=== PATIENT | male | born 1960 | race Caucasian/White ===

== ENCOUNTER → 2018-10-24 | Outpatient (CLI) | payer OTHER ==
--- NOTE | 2018-10-24 13:12 | EEG ---
DATE OF SERVICE: 10/24/2018 EEG NUMBER: [id number] OBJECTIVE: This is a 58-year-old male patient with history of epilepsy. EEG was requested to evaluate seizure activity. METHODS: Twenty electrodes were applied according to the international 10-20 electrode placement system. EKG monitoring, hyperventilation, intermittent photic stimulation, monopolar and bipolar montages are routinely utilized. The record was obtained on a digital system with video monitoring. FINDINGS: 1. Background: The patient was recorded in the awake and drowsy states. No actual sleep state was recorded. The overall background amplitude is 10-20 microvolts. A posterior dominant rhythm of 8-9 Hz is observed. 2. Abnormalities: Infrequent bvskvvgem-wxf-lqum mostly in the frontal, central, parietal and yazidism regions bilaterally. Occipital region not affected basically. 3 runs of eldwsulps-pvy-yuox discharges lasting 2-3 seconds each time. No clinical seizure observed. 3. Activation: Hyperventilation was performed with good efforts and normal response. Intermittent photic stimulation was performed with photic driving. One run of the uhgyjfvia-cjp-srwq discharges lasted for 3 seconds post hyperventilation. IMPRESSION: This EEG is an abnormal study for the awake and drowsy states. No actual sleep state was recorded. There are 3 runs of epileptiform discharges, mainly at the frontal, parietal, central and yazidism regions bilaterally. Occipital regions are not obviously affected. This bxfomwlel-kod-zpjw discharges are considered epileptiform discharges. LAWSON WOLFE MD DR: KEYUR/jovani JOB#: [id number] / [id number] MADONNA
== END | disposition home or self-care (01) ==
LOC: RT 08:14
PROVIDERS: ATTEND Psychiatry & Neurology Neurology
DX: R94.01 Abnormal electroencephalogram [EEG] (principal); G40.909 Epilepsy, unspecified, not intractable, without status epilepticus
CPT/HCPCS: 95816

== ENCOUNTER → 2019-08-07 | Outpatient (CLI) | payer OTHER ==
[2019-08-07 09:48] LABS: BASO % 1 % (0-3); EOS # 0.1 x10^3/uL (0.0-0.7); EOS % 2 % (0-3); HEMATOCRIT 44.4 % (39.0-53.0); HEMOGLOBIN 15.3 g/dL (13.0-17.5); LYMPH # 1.6 x10^3/uL (1.0-4.8); LYMPH % 26 % (24-48); MEAN CORPUSCULAR HEMOGLOBIN 33 pg (25-35); MEAN CORPUSCULAR HGB CONC 35 g/dL (31-37); MEAN CORPUSCULAR VOLUME 95 fL (79-100); MONO # 0.4 x10^3/uL (0.0-1.1); MONO % 7 % (0-9); NEUT # 3.9 x10^3/uL (1.8-7.7); NEUT % 65 % (31-73); PLATELET COUNT 197 x10^3/uL (140-400); RED CELL DISTRIBUTION WIDTH 12.2 % (11.5-14.5); WHITE BLOOD COUNT 6.1 x10^3/uL (4.0-11.0)
[2019-08-07 10:23] LABS: ALBUMIN 4.2 g/dL (3.4-5.0); ALBUMIN/GLOBULIN RATIO 1.4 (1.0-1.7); CALCIUM 8.8 mg/dL (8.5-10.1); CREATININE 0.9 mg/dL (0.7-1.3); GFR 86.7; POTASSIUM 3.8 mmol/L (3.5-5.1); TOTAL BILIRUBIN 0.8 mg/dL (0.2-1.0); TOTAL PROTEIN 7.2 g/dL (6.4-8.2)
[2019-08-07 10:25] LABS: CHOLESTEROL/HDL RATIO 4.7
== END | disposition home or self-care (01) ==
LOC: LAB 09:10
PROVIDERS: ATTEND Psychiatry & Neurology Neurology
DX: G40.909 Epilepsy, unspecified, not intractable, without status epilepticus (principal)
CPT/HCPCS: 36415; 80053; 80061; 85025

== ENCOUNTER → 2019-08-21 | Outpatient (CLI) | payer OTHER ==
--- NOTE | 2019-08-22 14:34 | EEG ---
DATE OF SERVICE: 08/21/2019 EEG NUMBER: [id number]. OBJECTIVE: This is a 59-year-old male patient with history of seizure. EEG was requested to evaluate seizure activity. METHODS: Twenty electrodes were applied according to the international 10-20 electrode placement system. EKG monitoring, hyperventilation, intermittent photic stimulation, monopolar and bipolar montages are routinely utilized. The record was obtained on a digital system with video monitoring. FINDINGS: 1. Background: The patient was recorded in the awake, drowsy, and sleep states. The overall background amplitude is 10-20 microvolts. A posterior dominant rhythm of 8-9 Hz is observed. 2. Abnormalities: There are some kckrmggmj-fqc-ebhv discharges mostly in frontal and parietal region lasting for 1-3 seconds each time. No diffuse slowing is seen. 3. Activation: Hyperventilation was performed with good efforts and normal response. Intermittent photic stimulation was performed with photic driving. IMPRESSION: This EEG is an abnormal study for the awake, drowsy, and sleep states. There are txvgtezip-pyt-mpis discharges mostly in the frontal and parietal regions lasting from 1-3 seconds each time, but compared with previous study, this EEG is improved. This pattern of EEG is suggestive of intermittent epileptiform discharges. LAWSON WOLFE MD DR: KEYUR/jovani JOB#: [id number] / [id number] MADONNA
== END | disposition home or self-care (01) ==
LOC: RT 06:55
PROVIDERS: ATTEND Psychiatry & Neurology Neurology
DX: G40.909 Epilepsy, unspecified, not intractable, without status epilepticus (principal); Z86.69 Personal history of other diseases of the nervous system and sense organs
CPT/HCPCS: 95816

== ENCOUNTER → 2020-01-05 | Outpatient (CLI) | payer OTHER ==
--- NOTE | 2020-01-10 09:03 | EEG ---
DATE OF SERVICE: 01/05/2020 EEG NUMBER: [id number]. OBJECTIVE: The patient is a 59-year-old male with epilepsy. DESCRIPTION: This is a digital study. Electrodes are placed according to the international 10-20 system. Bipolar and referential montages are available. Activation procedures typically include hyperventilation and intermittent photic stimulation. INTERPRETATION: The waking background consists of 9-10 Hz, 50-100 microvolt activity, symmetrically distributed over parietooccipital regions and reactive to eye opening. Hyperventilation and intermittent photic stimulation are noncontributory. Rare generalized sharp slowing episodes are observed, for instance at 10:59:03. Stage 1 sleep is achieved with normal electroencephalogram patterns. Hyperventilation and intermittent photic stimulation are noncontributory. 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 Thank you for letting us help with the patient's care. MARTHA NICHOLSON MD DR: RAMONA/jovani JOB#: [id number] / [id number]
== END | disposition home or self-care (01) ==
LOC: RT 09:11
PROVIDERS: ATTEND Psychiatry & Neurology Neurology
DX: G40.909 Epilepsy, unspecified, not intractable, without status epilepticus (principal)
CPT/HCPCS: 95816

== ENCOUNTER 2020-04-15 13:17 | Inpatient (IN) | payer OTHER ==
[~2020-04-15] VITALS: Ht 185.4 cm; Wt 101.2 kg
[2020-04-15] MEDS ORDERED: IV NORMAL SALINE 1000ML BAG 1,000 ML IV ONE ×2 (13:30→15:15)
[2020-04-15 13:55] LABS: BILIRUBIN,URINE NEGATIVE (NEG); CLARITY,URINE CLEAR; COLOR,URINE YELLOW; NITRITE,URINE NEGATIVE (NEG); PROTEIN,URINE 30 mg/dL (NEG-TRACE); UROBILINOGEN,URINE 0.2 mg/dL (0.2 mg/dL)
[2020-04-15 13:57] LABS: BASO % 0 % (0-3); EOS % 0 % (0-3); HEMATOCRIT 45.9 % (39.0-53.0); HEMOGLOBIN 15.7 g/dL (13.0-17.5); LYMPH # 0.3 x10^3/uL (1.0-4.8); LYMPH % 2 % (24-48); MEAN CORPUSCULAR HEMOGLOBIN 33 pg (25-35); MEAN CORPUSCULAR HGB CONC 34 g/dL (31-37); MEAN CORPUSCULAR VOLUME 95 fL (79-100); MONO # 0.8 x10^3/uL (0.0-1.1); MONO % 4 % (0-9); NEUT # 18.1 x10^3/uL (1.8-7.7); NEUT % 94 % (31-73); PLATELET COUNT 232 x10^3/uL (140-400); RED BLOOD COUNT 4.84 x10^6/uL (4.30-5.70); RED CELL DISTRIBUTION WIDTH 12.3 % (11.5-14.5); WHITE BLOOD COUNT 19.2 x10^3/uL (4.0-11.0)
[2020-04-15 14:01] LABS: BARBITURATES NEG (NEG); BENZODIAZEPINES NEG (NEG); CANNABINOIDS NEG (NEG); COCAINE NEG (NEG); METHADONE NEG (NEG); OPIATES NEG (NEG); PHENCYCLIDINE NEG (NEG)
[2020-04-15 14:05] LABS: CALCIUM 9.2 mg/dL (8.5-10.1); GFR 76.7; POTASSIUM 3.9 mmol/L (3.5-5.1)
[2020-04-15 14:11] LABS: AMPHETAMINE/METHAMPHETAMINE NEG (NEG)
[2020-04-15 14:11] LABS: ALBUMIN 4.4 g/dL (3.4-5.0); ALBUMIN/GLOBULIN RATIO 1.4 (1.0-1.7); PROTHROMBIN TIME PATIENT 12.6 SEC (11.7-14.0); TOTAL BILIRUBIN 0.5 mg/dL (0.2-1.0); TOTAL PROTEIN 7.5 g/dL (6.4-8.2)
[2020-04-15 14:15] LABS: AMORPHOUS SEDIMENT,UR PRESENT /HPF; BACTERIA,URINE 0 /HPF (0-FEW); RBC,URINE 0 /HPF (0-2); WBC,URINE RARE /HPF (0-4)
[2020-04-15] MEDS ORDERED: METF10007 PO (14:30)
[2020-04-15] MEDS ORDERED: PHEN100C PO (14:30)
[2020-04-15] MEDS ORDERED: MELA3TAB4 PO (14:30)
[2020-04-15] MEDS ORDERED: LISI1TAB23 PO (14:30)
[2020-04-15] MEDS ORDERED: CITA40TA5 PO (14:30)
--- NOTE | 2020-04-15 14:31 | RAD ---
EXAM: CT Head without IV contrast INDICATION: Reason: head and neck Trauma / Spl. Instructions: / History: TECHNIQUE: Multi-detector row CT images were obtained of the head without the use of IV contrast. All CT scans performed at this facility utilize dose optimization techniques as appropriate to the exam, including the following: Automated exposure control and adjustment of the mA and/or KV according to patient size (this includes techniques or standardized protocols for targeted exams where dose is indication/reason for exam). COMPARISON: None FINDINGS: BRAIN PARENCHYMA: No evidence of acute intraparenchymal hemorrhage or infarct. No abnormal parenchymal density or mass. VENTRICLES & EXTRA-AXIAL SPACES: Ventricles are within normal limits. Basilar cisterns are patent. No pathologic extra-axial fluid collection or mass. ORBITS: Orbital contents are unremarkable. SINUSES: Visualized paranasal sinuses and mastoid air cells are clear. OSSEOUS & SOFT TISSUES: Calvarium and skull base are intact. IMPRESSION: No acute intracranial pathology. EXAM: CT Cervical Spine without IV contrast INDICATION: Reason: head and neck Trauma / Spl. Instructions: / History: TECHNIQUE: Multi-detector row CT images were obtained through the cervical spine without the use of IV contrast. Post-processing sagittal and coronal reconstructed images were obtained for interpretation. All CT scans performed at this facility utilize dose optimization techniques as appropriate to the exam, including the following: Automated exposure control and adjustment of the mA and/or KV according to patient size (this includes techniques or standardized protocols for targeted exams where dose is indication/reason for exam). COMPARISON: None FINDINGS: CRANIOCERVICAL JUNCTION: Unremarkable. ALIGNMENT: Alignment is within normal limits. OSSEOUS: No evidence of fracture or bone destruction. DISC SPACES: Minimal disc degenerative change with uncovertebral hypertrophy best appreciated at C3-C4. FACET JOINTS: Minimal facet degenerative changes, most notable at C7-T1, right greater than left. SPINAL CANAL: Unremarkable. NEUROFORAMINA: Unremarkable. SOFT TISSUES: Unremarkable. IMPRESSION: No acute traumatic findings in the cervical spine. Electronically signed by: Lul Cervantes MD (04/15/2020 2:28 PM) [facility] – [place]
--- NOTE | 2020-04-15 14:37 | PHYS DOC ---
Past Medical History Past Medical History: Depression, Diabetes-Type II, High Cholesterol, Hypertension, Seizure Additional Past Medical Histor: EPILEPSY,CHRONIC NECK AND BACK PAIN Past Surgical History: Other Additional Past Surgical Histo: EYE SURGERY Smoking Status: Unknown if ever smoked Alcohol Use: None General Adult EDM: Chief Complaint: TRAUMA ALERT HPI: HPI: Patient is a 59-year-old male with a history of seizure disorder who was found at home with blood all over his face. Patient did not show up for work today and a wellness check was called into the local Police Department by the patient's boss since he did not come home from work when the police showed up they found the patient with blood on his face and essentially unresponsive he had been incontinent of urine. Patient is unable to provide any history secondary to altered mental status [] Review of Systems: Review of Systems: Review of systems is unobtainable secondary to altered mental status Heart Score: Risk Factors: Risk Factors: DM, Current or recent (<one month) smoker, HTN, HLP, family history of CAD, obesity. Risk Scores: Score 0 - 3: 2.5% MACE over next 6 weeks - Discharge Home Score 4 - 6: 20.3% MACE over next 6 weeks - Admit for Clinical Observation Score 7 - 10: 72.7% MACE over next 6 weeks - Early Invasive Strategies Current Medications: Current Medications Medications (Trade) Dose Ordered Sig/Danni Start Time Stop Time Status Last Admin Dose Admin Sodium Chloride 1,000 ml @ 1,000 mls/hr 1X ONCE 04/15/20 13:30 04/15/20 14:29 DC 04/15/20 14:23 1,000 MLS/HR Allergies: Allergies: Allergies Coded Allergies Type Severity Reaction Last Updated Verified No Known Drug Allergies 04/15/20 No Physical Exam: PE: Constitutional: Well developed, well nourished, no acute distress, non-toxic appearance. [] HENT: He has a oral injury nothing obvious but there is blood coming from his mouth] Eyes: Irregular left pupil with foreign body over the middle of the left pupil the right pupil is 2 mm and responsive to light [] Neck: Normal range of motion, no tenderness, supple, no stridor. [] Cardiovascular: Tachycardic no obvious murmur [] Lungs & Thorax: Bilateral breath sounds clear to auscultation [] Abdomen: Bowel sounds normal, soft, no tenderness, no masses, no pulsatile masses. [] Skin: Warm, dry, no erythema, no rash. [] Back: No tenderness, no CVA tenderness. [] Extremities: No tenderness, no cyanosis, no clubbing, ROM intact, no edema. [] Neurologic: Arouses to verbal stimuli will follow with his eyes, moves all 4 extremities. [] Psychologic: Unable to assess. [] Current Patient Data: Labs: Laboratory Tests Test 04/15/20 13:24 04/15/20 13:33 04/15/20 13:40 Urine Opiates Screen Neg (NEG) Urine Methadone Screen Neg (NEG) Urine Barbiturates Neg (NEG) Urine Phencyclidine Screen Neg (NEG) Urine Amphetamine/Methamphetamine Neg (NEG) Urine Benzodiazepines Screen Neg (NEG) Urine Cocaine Screen Neg (NEG) Urine Cannabinoids Screen Neg (NEG) Urine Ethyl Alcohol Neg (NEG) White Blood Count 19.2 x10^3/uL (4.0-11.0) H Red Blood Count 4.84 x10^6/uL (4.30-5.70) Hemoglobin 15.7 g/dL (13.0-17.5) Hematocrit 45.9 % (39.0-53.0) Mean Corpuscular Volume 95 fL (79-100) Mean Corpuscular Hemoglobin 33 pg (25-35) Mean Corpuscular Hemoglobin Concent 34 g/dL (31-37) Red Cell Distribution Width 12.3 % (11.5-14.5) Platelet Count 232 x10^3/uL (140-400) Neutrophils (%) (Auto) 94 % (31-73) H Lymphocytes (%) (Auto) 2 % (24-48) L Monocytes (%) (Auto) 4 % (0-9) Eosinophils (%) (Auto) 0 % (0-3) Basophils (%) (Auto) 0 % (0-3) Neutrophils # (Auto) 18.1 x10^3/uL (1.8-7.7) H Lymphocytes # (Auto) 0.3 x10^3/uL (1.0-4.8) L Monocytes # (Auto) 0.8 x10^3/uL (0.0-1.1) Eosinophils # (Auto) 0.0 x10^3/uL (0.0-0.7) Basophils # (Auto) 0.0 x10^3/uL (0.0-0.2) Platelet Estimate Pending Prothrombin Time 12.6 SEC (11.7-14.0) Prothrombin Time INR 1.0 (0.8-1.1) Sodium Level 142 mmol/L (136-145) Potassium Level 3.9 mmol/L (3.5-5.1) Chloride Level 103 mmol/L (98-107) Carbon Dioxide Level 21 mmol/L (21-32) Anion Gap 18 (6-14) H Blood Urea Nitrogen 13 mg/dL (8-26) Creatinine 1.0 mg/dL (0.7-1.3) Estimated GFR (Cockcroft-Gault) 76.7 BUN/Creatinine Ratio 13 (6-20) Glucose Level 210 mg/dL (70-99) H Lactic Acid Level 2.8 mmol/L (0.4-2.0) H Calcium Level 9.2 mg/dL (8.5-10.1) Total Bilirubin 0.5 mg/dL (0.2-1.0) Aspartate Amino Transferase (AST) 23 U/L (15-37) Alanine Aminotransferase (ALT) 31 U/L (16-63) Alkaline Phosphatase 87 U/L (46-116) Creatine Kinase 673 U/L (39-308) H Troponin I Quantitative < 0.017 ng/mL (0.000-0.055) Total Protein 7.5 g/dL (6.4-8.2) Albumin 4.4 g/dL (3.4-5.0) Albumin/Globulin Ratio 1.4 (1.0-1.7) Ethyl Alcohol Level < 10 mg/dL (0-10) Urine Collection Type Unknown Urine Color Yellow Urine Clarity Clear Urine pH 5.0 (<5.0-8.0) Urine Specific [place] >=1.030 (1.000-1.030) Urine Protein 30 mg/dL (NEG-TRACE) Urine Glucose (UA) >=1000 mg/dL (NEG) Urine Ketones (Stick) >=80 mg/dL (NEG) Urine Blood Moderate (NEG) Urine Nitrite Negative (NEG) Urine Bilirubin Negative (NEG) Urine Urobilinogen Dipstick 0.2 mg/dL (0.2 mg/dL) Urine Leukocyte Esterase Negative (NEG) Urine RBC 0 /HPF (0-2) Urine WBC Rare /HPF (0-4) Urine Squamous Epithelial Cells None /LPF Urine Amorphous Sediment Present /HPF Urine Bacteria 0 /HPF (0-FEW) Urine Mucus Mod /LPF Laboratory Tests 04/15/20 13:33 Laboratory Tests 04/15/20 13:33 Vital Signs: Vital Signs Date Time Temp Pulse Resp B/P (MAP) Pulse Ox O2 Delivery O2 Flow Rate FiO2 04/15/20 13:20 98.2 106 16 155/104 (121) 98 Room Air 98.2 EKG: EKG: EKG: Sinus tachycardia rate of [address]-T changes [] Radiology/Procedures: Radiology/Procedures: []PROCEDURE: CT HEAD AND CERVICAL SPINE WO EXAM: CT Head without IV contrast INDICATION: Reason: head and neck Trauma / Spl. Instructions: / History: TECHNIQUE: Multi-detector row CT images were obtained of the head without the use of IV contrast. All CT scans performed at this facility utilize dose optimization techniques as appropriate to the exam, including the following: Automated exposure control and adjustment of the mA and/or KV according to patient size (this includes techniques or standardized protocols for targeted exams where dose is indication/reason for exam). COMPARISON: None FINDINGS: BRAIN PARENCHYMA: No evidence of acute intraparenchymal hemorrhage or infarct. No abnormal parenchymal density or mass. VENTRICLES & EXTRA-AXIAL SPACES: Ventricles are within normal limits. Basilar cisterns are patent. No pathologic extra-axial fluid collection or mass. ORBITS: Orbital contents are unremarkable. SINUSES: Visualized paranasal sinuses and mastoid air cells are clear. OSSEOUS & SOFT TISSUES: Calvarium and skull base are intact. IMPRESSION: No acute intracranial pathology. EXAM: CT Cervical Spine without IV contrast INDICATION: Reason: head and neck Trauma / Spl. Instructions: / History: TECHNIQUE: Multi-detector row CT images were obtained through the cervical spine without the use of IV contrast. Post-processing sagittal and coronal reconstructed images were obtained for interpretation. All CT scans performed at this facility utilize dose optimization techniques as appropriate to the exam, including the following: Automated exposure control and adjustment of the mA and/or KV according to patient size (this includes techniques or standardized protocols for targeted exams where dose is indication/reason for exam). COMPARISON: None FINDINGS: CRANIOCERVICAL JUNCTION: Unremarkable. ALIGNMENT: Alignment is within normal limits. OSSEOUS: No evidence of fracture or bone destruction. DISC SPACES: Minimal disc degenerative change with uncovertebral hypertrophy best appreciated at C3-C4. FACET JOINTS: Minimal facet degenerative changes, most notable at C7-T1, right greater than left. SPINAL CANAL: Unremarkable. NEUROFORAMINA: Unremarkable. SOFT TISSUES: Unremarkable. IMPRESSION: No acute traumatic findings in the cervical spine. Impression: PROCEDURE: CHEST AP ONLY EXAM: Chest, single view. HISTORY: Leukocytosis. COMPARISON: None. FINDINGS: A frontal view of the chest obtained. There is mild increased central predominant interstitial opacity. There is no consolidation, pleural effusion or pneumothorax. The heart is normal in size. IMPRESSION: Mild central predominant increased interstitial opacity due to relative decreased lung volumes or interstitial infiltrate. No consolidation is seen. Course & Med Decision Making: Course & Med Decision Making Pertinent Labs and Imaging studies reviewed. (See chart for details) [ED course: Evaluation reveals a 59-year-old male who is likely had a seizure at home. He has no evidence of infection that I can find however he does have an elevated white count and a lactic acid of 2.8 I think the white count is elevated secondary to his seizure as well as the lactic acid. Patient was given a couple liters of IV fluids here he became more responsive. On recheck I did check his neck again there were no meningeal signs. CT of his head was negative. I spoke with the hospitalist who agreed with my assessment and will place the patient in the hospital with neurology consult.] Betsey Disclaimer: Betsey Disclaimer: This electronic medical record was generated, in whole or in part, using a voice recognition dictation system. Departure Departure Impression: Primary Impression: Altered mental status Qualified Codes: R41.82 - Altered mental status, unspecified Additional Impression: Seizure Disposition: ADMITTED INPATIENT Admitting Physician: PANKAJ Condition: STABLE Referrals: ROMMEL MORALEZ MD (PCP) Justicifation of Admission Dx: Justifications for Admission: Justification of Admission Dx: Yes Comments: Altered mental status SHASHI DHILLON DO Apr 15, 2020 14:37
[2020-04-15 15:05] LABS: % BANDS 6 % (0-9); % MONOS 3 % (0-10); % SEGS 91 % (35-66); PLT ESTIMATE ADEQUATE (ADEQUATE)
[2020-04-15 15:06] LABS: TOXIC GRANULATION SLIGHT; TOXIC VACUOLATION SLIGHT
--- NOTE | 2020-04-15 15:26 | PDOC1 ---
History and Physical Date of Admission Date of Admission DATE: 04/15/20 TIME: 15:24 Identification/Chief Complaint Chief Complaint Found down Source Source: Chart review History of Present Illness History of Present Illness Mr Cochran is a 59yo M w/ PMHx depression, seizure disorder, DM2, HLD, HTN who comes to ED via EMS from home. He was found facedown in a pool of blood by EMS after police were contacted for a wellness check by his employer after he did not show up to work. GCS 9. Last seen 04/13/[address] head, neck and face negative. Lactate 2.8, CK 673, INR 1, WBC 19.2, Hb 15.7, platelets 232, NA 142, K3.9, BUN 13, CR 1, glucose 210. Troponin negative, urine drug screen negative, alcohol negative. Urine positive for glucosuria, ketones, blood. He does open his eyes to sternal rub and moans. Past Medical History Cardiovascular: HTN CENTRAL NERVOUS SYSTEM: Seizure Endocrine: Diabetes Past Surgical History Past Surgical History: No pertinent history Family History Family History: Family History Unknown Social History Smoke: No ALCOHOL: none Drugs: None Current Medications Current Medications Current Medications Sodium Chloride 1,000 ml @ 1,000 mls/hr 1X ONCE IV Last administered on 04/15/20at 14:23; Start 04/15/20 at 13:30; Stop 04/15/20 at 14:29; Status DC Sodium Chloride 1,000 ml @ 0 mls/hr 1X ONCE IV ; Start 04/15/20 at 15:15; Stop 04/15/20 at 15:17; Status DC Active Scripts Active Reported Dilantin (Phenytoin Sodium Extended) 100 Mg Capsule 300 Mg PO QHS Metformin Hcl 1,000 Mg Tablet 1,000 Mg PO BIDWMEALS Citalopram Hbr (Citalopram Hydrobromide) 40 Mg Tablet 1 Tab PO DAILY Lisinopril-Hctz 10-12.5 Mg Tab (Lisinopril/Hydrochlorothiazide) 1 Each Tablet 1 Tab PO DAILY Melatonin 3 Mg Tablet 1 Tab PO QHS Allergies Allergies: Coded Allergies: No Known Drug Allergies (Unverified , 04/15/20) ROS Review of System Unable to obtain due to altered mental status Physical Exam General: Cooperative, No acute distress, Other (Confused) HEENT: Atraumatic, PERRLA, EOMI, Mucous membr. moist/pink Lungs: Clear to auscultation, Normal air movement Heart: S1S2, RRR, no thrills, no rubs, no gallops, no murmurs Abdomen: Normal bowel sounds, Soft, No tenderness, No hepatosplenomegaly, No masses Rectal Exam: not examined Extremities: No clubbing, No cyanosis, No edema, Normal pulses, No tenderness/swelling Skin: No rashes, No breakdown, No significant lesion Neuro: Normal tone, Sensation intact, Cranial nerves 3-12 NL, Reflexes 2+, Other (Moving all 4 limbs) Psych/Mental Status: Other Vitals Vitals Vital Signs Date Time Temp Pulse Resp B/P (MAP) Pulse Ox O2 Delivery O2 Flow Rate FiO2 04/15/20 14:22 104 161/113 (129) 99 Room Air 04/15/20 13:20 98.2 16 98.2 Labs Labs Laboratory Tests Test 04/15/20 13:24 04/15/20 13:33 04/15/20 13:40 Urine Opiates Screen Neg (NEG) Urine Methadone Screen Neg (NEG) Urine Barbiturates Neg (NEG) Urine Phencyclidine Screen Neg (NEG) Urine Amphetamine/Methamphetamine Neg (NEG) Urine Benzodiazepines Screen Neg (NEG) Urine Cocaine Screen Neg (NEG) Urine Cannabinoids Screen Neg (NEG) Urine Ethyl Alcohol Neg (NEG) White Blood Count 19.2 x10^3/uL (4.0-11.0) Red Blood Count 4.84 x10^6/uL (4.30-5.70) Hemoglobin 15.7 g/dL (13.0-17.5) Hematocrit 45.9 % (39.0-53.0) Mean Corpuscular Volume 95 fL (79-100) Mean Corpuscular Hemoglobin 33 pg (25-35) Mean Corpuscular Hemoglobin Concent 34 g/dL (31-37) Red Cell Distribution Width 12.3 % (11.5-14.5) Platelet Count 232 x10^3/uL (140-400) Neutrophils (%) (Auto) 94 % (31-73) Lymphocytes (%) (Auto) 2 % (24-48) Monocytes (%) (Auto) 4 % (0-9) Eosinophils (%) (Auto) 0 % (0-3) Basophils (%) (Auto) 0 % (0-3) Neutrophils # (Auto) 18.1 x10^3/uL (1.8-7.7) Lymphocytes # (Auto) 0.3 x10^3/uL (1.0-4.8) Monocytes # (Auto) 0.8 x10^3/uL (0.0-1.1) Eosinophils # (Auto) 0.0 x10^3/uL (0.0-0.7) Basophils # (Auto) 0.0 x10^3/uL (0.0-0.2) Segmented Neutrophils % 91 % (35-66) Band Neutrophils % 6 % (0-9) Monocytes % 3 % (0-10) Toxic Granulation Slight Toxic Vacuolation Slight Platelet Estimate Adequate (ADEQUATE) Prothrombin Time 12.6 SEC (11.7-14.0) Prothromb Time International Ratio 1.0 (0.8-1.1) Sodium Level 142 mmol/L (136-145) Potassium Level 3.9 mmol/L (3.5-5.1) Chloride Level 103 mmol/L (98-107) Carbon Dioxide Level 21 mmol/L (21-32) Anion Gap 18 (6-14) Blood Urea Nitrogen 13 mg/dL (8-26) Creatinine 1.0 mg/dL (0.7-1.3) Estimated GFR (Cockcroft-Gault) 76.7 BUN/Creatinine Ratio 13 (6-20) Glucose Level 210 mg/dL (70-99) Lactic Acid Level 2.8 mmol/L (0.4-2.0) Calcium Level 9.2 mg/dL (8.5-10.1) Total Bilirubin 0.5 mg/dL (0.2-1.0) Aspartate Amino Transf (AST/SGOT) 23 U/L (15-37) Alanine Aminotransferase (ALT/SGPT) 31 U/L (16-63) Alkaline Phosphatase 87 U/L (46-116) Creatine Kinase 673 U/L (39-308) Troponin I Quantitative < 0.017 ng/mL (0.000-0.055) Total Protein 7.5 g/dL (6.4-8.2) Albumin 4.4 g/dL (3.4-5.0) Albumin/Globulin Ratio 1.4 (1.0-1.7) Ethyl Alcohol Level < 10 mg/dL (0-10) Urine Collection Type Unknown Urine Color Yellow Urine Clarity Clear Urine pH 5.0 (<5.0-8.0) Urine Specific [place] >=1.030 (1.000-1.030) Urine Protein 30 mg/dL (NEG-TRACE) Urine Glucose (UA) >=1000 mg/dL (NEG) Urine Ketones (Stick) >=80 mg/dL (NEG) Urine Blood Moderate (NEG) Urine Nitrite Negative (NEG) Urine Bilirubin Negative (NEG) Urine Urobilinogen Dipstick 0.2 mg/dL (0.2 mg/dL) Urine Leukocyte Esterase Negative (NEG) Urine RBC 0 /HPF (0-2) Urine WBC Rare /HPF (0-4) Urine Squamous Epithelial Cells None /LPF Urine Amorphous Sediment Present /HPF Urine Bacteria 0 /HPF (0-FEW) Urine Mucus Mod /LPF Laboratory Tests Test 04/15/20 13:24 04/15/20 13:33 04/15/20 13:40 Urine Opiates Screen Neg (NEG) Urine Methadone Screen Neg (NEG) Urine Barbiturates Neg (NEG) Urine Phencyclidine Screen Neg (NEG) Urine Amphetamine/Methamphetamine Neg (NEG) Urine Benzodiazepines Screen Neg (NEG) Urine Cocaine Screen Neg (NEG) Urine Cannabinoids Screen Neg (NEG) Urine Ethyl Alcohol Neg (NEG) White Blood Count 19.2 x10^3/uL (4.0-11.0) Red Blood Count 4.84 x10^6/uL (4.30-5.70) Hemoglobin 15.7 g/dL (13.0-17.5) Hematocrit 45.9 % (39.0-53.0) Mean Corpuscular Volume 95 fL (79-100) Mean Corpuscular Hemoglobin 33 pg (25-35) Mean Corpuscular Hemoglobin Concent 34 g/dL (31-37) Red Cell Distribution Width 12.3 % (11.5-14.5) Platelet Count 232 x10^3/uL (140-400) Neutrophils (%) (Auto) 94 % (31-73) Lymphocytes (%) (Auto) 2 % (24-48) Monocytes (%) (Auto) 4 % (0-9) Eosinophils (%) (Auto) 0 % (0-3) Basophils (%) (Auto) 0 % (0-3) Neutrophils # (Auto) 18.1 x10^3/uL (1.8-7.7) Lymphocytes # (Auto) 0.3 x10^3/uL (1.0-4.8) Monocytes # (Auto) 0.8 x10^3/uL (0.0-1.1) Eosinophils # (Auto) 0.0 x10^3/uL (0.0-0.7) Basophils # (Auto) 0.0 x10^3/uL (0.0-0.2) Segmented Neutrophils % 91 % (35-66) Band Neutrophils % 6 % (0-9) Monocytes % 3 % (0-10) Toxic Granulation Slight Toxic Vacuolation Slight Platelet Estimate Adequate (ADEQUATE) Prothrombin Time 12.6 SEC (11.7-14.0) Prothromb Time International Ratio 1.0 (0.8-1.1) Sodium Level 142 mmol/L (136-145) Potassium Level 3.9 mmol/L (3.5-5.1) Chloride Level 103 mmol/L (98-107) Carbon Dioxide Level 21 mmol/L (21-32) Anion Gap 18 (6-14) Blood Urea Nitrogen 13 mg/dL (8-26) Creatinine 1.0 mg/dL (0.7-1.3) Estimated GFR (Cockcroft-Gault) 76.7 BUN/Creatinine Ratio 13 (6-20) Glucose Level 210 mg/dL (70-99) Lactic Acid Level 2.8 mmol/L (0.4-2.0) Calcium Level 9.2 mg/dL (8.5-10.1) Total Bilirubin 0.5 mg/dL (0.2-1.0) Aspartate Amino Transf (AST/SGOT) 23 U/L (15-37) Alanine Aminotransferase (ALT/SGPT) 31 U/L (16-63) Alkaline Phosphatase 87 U/L (46-116) Creatine Kinase 673 U/L (39-308) Troponin I Quantitative < 0.017 ng/mL (0.000-0.055) Total Protein 7.5 g/dL (6.4-8.2) Albumin 4.4 g/dL (3.4-5.0) Albumin/Globulin Ratio 1.4 (1.0-1.7) Ethyl Alcohol Level < 10 mg/dL (0-10) Urine Collection Type Unknown Urine Color Yellow Urine Clarity Clear Urine pH 5.0 (<5.0-8.0) Urine Specific [place] >=1.030 (1.000-1.030) Urine Protein 30 mg/dL (NEG-TRACE) Urine Glucose (UA) >=1000 mg/dL (NEG) Urine Ketones (Stick) >=80 mg/dL (NEG) Urine Blood Moderate (NEG) Urine Nitrite Negative (NEG) Urine Bilirubin Negative (NEG) Urine Urobilinogen Dipstick 0.2 mg/dL (0.2 mg/dL) Urine Leukocyte Esterase Negative (NEG) Urine RBC 0 /HPF (0-2) Urine WBC Rare /HPF (0-4) Urine Squamous Epithelial Cells None /LPF Urine Amorphous Sediment Present /HPF Urine Bacteria 0 /HPF (0-FEW) Urine Mucus Mod /LPF Images Images BRAIN PARENCHYMA: No evidence of acute intraparenchymal hemorrhage or infarct. No abnormal parenchymal density or mass. VENTRICLES & EXTRA-AXIAL SPACES: Ventricles are within normal limits. Basilar cisterns are patent. No pathologic extra-axial fluid collection or mass. ORBITS: Orbital contents are unremarkable. SINUSES: Visualized paranasal sinuses and mastoid air cells are clear. OSSEOUS & SOFT TISSUES: Calvarium and skull base are intact. IMPRESSION: No acute intracranial pathology. EXAM: CT Cervical Spine without IV contrast INDICATION: Reason: head and neck Trauma / Spl. Instructions: / History: TECHNIQUE: Multi-detector row CT images were obtained through the cervical spine without the use of IV contrast. Post-processing sagittal and coronal reconstructed images were obtained for interpretation. All CT scans performed at this facility utilize dose optimization techniques as appropriate to the exam, including the following: Automated exposure control and adjustment of the mA and/or KV according to patient size (this includes techniques or standardized protocols for targeted exams where dose is indication/reason for exam). COMPARISON: None FINDINGS: CRANIOCERVICAL JUNCTION: Unremarkable. ALIGNMENT: Alignment is within normal limits. OSSEOUS: No evidence of fracture or bone destruction. DISC SPACES: Minimal disc degenerative change with uncovertebral hypertrophy best appreciated at C3-C4. FACET JOINTS: Minimal facet degenerative changes, most notable at C7-T1, right greater than left. SPINAL CANAL: Unremarkable. NEUROFORAMINA: Unremarkable. SOFT TISSUES: Unremarkable. IMPRESSION: No acute traumatic findings in the cervical spine. VTE Prophylaxis Ordered VTE Prophylaxis Devices: No VTE Pharmacological Prophylaxi: Yes Assessment/Plan Assessment/Plan A/P: Acute encephalopathy - likely post-ictal from seizure, will place on seizure precautions, Dilantin level. Consult neurology PRN IV lorazepam if he has seizures. Will likely need a load of fosphenytoin. Elevated CK -likely mild rhabdo from being found down. Will repeat level in the morning. Leukocytosis -likely from fall and possible seizure. Will repeat CBC in the morning. Will check chest x-ray to rule out any pulmonary pathology though he does not have any adventitious lung sounds. No other signs of infection. Afebrile. Depression Seizure disorder -on Dilantin. Will check level. Consult neurology. DM2 -we will place on sliding scale while inpatient. HLD -will hold statin for n.p.o. is confused. HTN -we will give IV as needed hydralazine. FEN - NPO PPX - SCDs FULL CODE Dispo - Inpatient Justicifation of Admission Dx: Justifications for Admission: Justification of Admission Dx: Yes JACQUELINE STONE MD Apr 15, 2020 15:26
[2020-04-15] MEDS ORDERED: ONDANSETRON PF 4 MG/2 ML VIAL. IV PRN ×2 (15:30→16:45)
[2020-04-15] MEDS: IV NORMAL SALINE 1000ML BAG 1,000 ML IV SCH ×2 (16:33→22:04)
[2020-04-15] MEDS ORDERED: DEXTROSE 50% 25 GM / 50ML DISP.SYRIN. IV PRN (16:45)
--- NOTE | 2020-04-15 17:18 | RAD ---
EXAM: Chest, single view. HISTORY: Leukocytosis. COMPARISON: None. FINDINGS: A frontal view of the chest obtained. There is mild increased central predominant interstitial opacity. There is no consolidation, pleural effusion or pneumothorax. The heart is normal in size. IMPRESSION: Mild central predominant increased interstitial opacity due to relative decreased lung volumes or interstitial infiltrate. No consolidation is seen. Electronically signed by: Miriam Arreguin MD (04/15/2020 5:15 PM) [id number]
[2020-04-15 18:26] LABS: PHENY < 10.0 mcg/mL (10.0-20.0)
[2020-04-15 18:59] VITALS: BP_SYST 147; BP_SYST 170; BP_DIAS 101; BP_DIAS 61
[2020-04-15] MEDS: INSULIN LISPRO 300 UNITS/3 ML VIAL. SQ SCH (21:00)
[2020-04-15] MEDS: FOSPHENYTOIN 100 MG/2 ML VIAL. IV SCH (21:21)
[2020-04-15] MEDS: ENOXAPARIN 40 MG/0.4 ML SYRINGE. SQ SCH (22:25)
[2020-04-15 23:00] VITALS: BP 169/106
[2020-04-16 03:00] VITALS: BP 159/84
[2020-04-16] MEDS: IV NORMAL SALINE 1000ML BAG 1,000 ML IV SCH (04:44)
[2020-04-16 05:15] LABS: BASO % 0 % (0-3); EOS % 0 % (0-3); HEMATOCRIT 39.4 % (39.0-53.0); HEMOGLOBIN 13.5 g/dL (13.0-17.5); LYMPH # 1.1 x10^3/uL (1.0-4.8); LYMPH % 9 % (24-48); MEAN CORPUSCULAR HEMOGLOBIN 33 pg (25-35); MEAN CORPUSCULAR HGB CONC 34 g/dL (31-37); MEAN CORPUSCULAR VOLUME 95 fL (79-100); MONO # 0.8 x10^3/uL (0.0-1.1); MONO % 6 % (0-9); NEUT # 10.7 x10^3/uL (1.8-7.7); NEUT % 85 % (31-73); PLATELET COUNT 194 x10^3/uL (140-400); RED BLOOD COUNT 4.15 x10^6/uL (4.30-5.70); RED CELL DISTRIBUTION WIDTH 12.2 % (11.5-14.5); WHITE BLOOD COUNT 12.6 x10^3/uL (4.0-11.0)
[2020-04-16 05:43] LABS: ALBUMIN 3.3 g/dL (3.4-5.0); ALBUMIN/GLOBULIN RATIO 1.1 (1.0-1.7); CALCIUM 8.1 mg/dL (8.5-10.1); CREATININE 0.9 mg/dL (0.7-1.3); GFR 86.7; POTASSIUM 3.2 mmol/L (3.5-5.1); TOTAL BILIRUBIN 0.9 mg/dL (0.2-1.0); TOTAL PROTEIN 6.4 g/dL (6.4-8.2)
[2020-04-16] MEDS: FOSPHENYTOIN 100 MG/2 ML VIAL. IV SCH (06:17)
[2020-04-16] MEDS: INSULIN LISPRO 300 UNITS/3 ML VIAL. SQ SCH ×4 (07:30→20:59)
--- NOTE | 2020-04-16 07:56 | PDOC ---
[facility] PROGRESS NOTE Date of Service DOS: DATE: 04/16/20 TIME: 07:55 Chief Complaint Chief Complaint A/P: Acute encephalopathy - likely post-ictal from seizure, will place on seizure precautions, Dilantin level. Consult neurology PRN IV lorazepam if he has seizures. load of fosphenytoin IV. Elevated CK -likely mild rhabdo from being found down. Will repeat level in the morning. Leukocytosis -likely from fall and possible seizure. Improved. Chest x-ray ruled out any pulmonary pathology. No other signs of infection. Afebrile. Depression Seizure disorder -on Dilantin. Will check level. Consult neurology. DM2 -we will place on sliding scale while inpatient. HLD -will hold statin for n.p.o. is confused. HTN -we will give IV as needed hydralazine. FEN - ADAT PPX - SCDs FULL CODE Dispo - Inpatient History of Present Illness History of Present Illness Mr Cochran is a 59yo M w/ PMHx depression, seizure disorder, DM2, HLD, HTN who comes to ED via EMS from home. He was found facedown in a pool of blood by EMS after police were contacted for a wellness check by his employer after he did not show up to work. GCS 9. Last seen 04/13/[address] head, neck and face negative. Lactate 2.8, CK 673, INR 1, WBC 19.2, Hb 15.7, platelets 232, NA 142, K3.9, BUN 13, CR 1, glucose 210. Troponin negative, urine drug screen negative, alcohol negative. Urine positive for glucosuria, ketones, blood. Initially only opened his eyes to sternal rub and moans. Afebrile. Seen bedside today he is conversational. Does have a positive speech. Does not voice any complaints of pain. Does not recall the events that brought him here. WBC improved. Vitals/I&O Vitals/I&O: Vital Signs Date Time Temp Pulse Resp B/P (MAP) Pulse Ox O2 Delivery O2 Flow Rate FiO2 04/16/20 03:00 99.9 107 20 159/84 (109) 94 Room Air 99.9 I & O 04/15/20 04/15/20 04/16/20 15:00 23:00 07:00 Intake Total 2000 ml Output Total 2000 ml Balance 2000 ml -2000 ml Physical Exam General: Alert, Cooperative, No acute distress Abdomen: Normal bowel sounds, Soft, No tenderness, No hepatosplenomegaly, No masses Extremities: No clubbing, No cyanosis, No edema, Normal pulses, No tenderness/swelling Skin: No rashes, No breakdown, No significant lesion Labs Labs: Laboratory Tests Test 04/15/20 13:24 04/15/20 13:33 04/15/20 13:40 04/15/20 19:07 Urine Opiates Screen Neg (NEG) Urine Methadone Screen Neg (NEG) Urine Barbiturates Neg (NEG) Urine Phencyclidine Screen Neg (NEG) Urine Amphetamine/Methamphetamine Neg (NEG) Urine Benzodiazepines Screen Neg (NEG) Urine Cocaine Screen Neg (NEG) Urine Cannabinoids Screen Neg (NEG) Urine Ethyl Alcohol Neg (NEG) White Blood Count 19.2 x10^3/uL (4.0-11.0) Red Blood Count 4.84 x10^6/uL (4.30-5.70) Hemoglobin 15.7 g/dL (13.0-17.5) Hematocrit 45.9 % (39.0-53.0) Mean Corpuscular Volume 95 fL (79-100) Mean Corpuscular Hemoglobin 33 pg (25-35) Mean Corpuscular Hemoglobin Concent 34 g/dL (31-37) Red Cell Distribution Width 12.3 % (11.5-14.5) Platelet Count 232 x10^3/uL (140-400) Neutrophils (%) (Auto) 94 % (31-73) Lymphocytes (%) (Auto) 2 % (24-48) Monocytes (%) (Auto) 4 % (0-9) Eosinophils (%) (Auto) 0 % (0-3) Basophils (%) (Auto) 0 % (0-3) Neutrophils # (Auto) 18.1 x10^3/uL (1.8-7.7) Lymphocytes # (Auto) 0.3 x10^3/uL (1.0-4.8) Monocytes # (Auto) 0.8 x10^3/uL (0.0-1.1) Eosinophils # (Auto) 0.0 x10^3/uL (0.0-0.7) Basophils # (Auto) 0.0 x10^3/uL (0.0-0.2) Segmented Neutrophils % 91 % (35-66) Band Neutrophils % 6 % (0-9) Monocytes % 3 % (0-10) Toxic Granulation Slight Toxic Vacuolation Slight Platelet Estimate Adequate (ADEQUATE) Prothrombin Time 12.6 SEC (11.7-14.0) Prothromb Time International Ratio 1.0 (0.8-1.1) Sodium Level 142 mmol/L (136-145) Potassium Level 3.9 mmol/L (3.5-5.1) Chloride Level 103 mmol/L (98-107) Carbon Dioxide Level 21 mmol/L (21-32) Anion Gap 18 (6-14) Blood Urea Nitrogen 13 mg/dL (8-26) Creatinine 1.0 mg/dL (0.7-1.3) Estimated GFR (Cockcroft-Gault) 76.7 BUN/Creatinine Ratio 13 (6-20) Glucose Level 210 mg/dL (70-99) Lactic Acid Level 2.8 mmol/L (0.4-2.0) 2.5 mmol/L (0.4-2.0) Calcium Level 9.2 mg/dL (8.5-10.1) Total Bilirubin 0.5 mg/dL (0.2-1.0) Aspartate Amino Transf (AST/SGOT) 23 U/L (15-37) Alanine Aminotransferase (ALT/SGPT) 31 U/L (16-63) Alkaline Phosphatase 87 U/L (46-116) Creatine Kinase 673 U/L (39-308) Troponin I Quantitative < 0.017 ng/mL (0.000-0.055) Total Protein 7.5 g/dL (6.4-8.2) Albumin 4.4 g/dL (3.4-5.0) Albumin/Globulin Ratio 1.4 (1.0-1.7) Phenytoin (Dilantin) Level < 10.0 mcg/mL (10.0-20.0) Phenytoin Last Dose Date 04/13/20 Phenytoin Last Dose Time 0900 Ethyl Alcohol Level < 10 mg/dL (0-10) Urine Collection Type Unknown Urine Color Yellow Urine Clarity Clear Urine pH 5.0 (<5.0-8.0) Urine Specific [place] >=1.030 (1.000-1.030) Urine Protein 30 mg/dL (NEG-TRACE) Urine Glucose (UA) >=1000 mg/dL (NEG) Urine Ketones (Stick) >=80 mg/dL (NEG) Urine Blood Moderate (NEG) Urine Nitrite Negative (NEG) Urine Bilirubin Negative (NEG) Urine Urobilinogen Dipstick 0.2 mg/dL (0.2 mg/dL) Urine Leukocyte Esterase Negative (NEG) Urine RBC 0 /HPF (0-2) Urine WBC Rare /HPF (0-4) Urine Squamous Epithelial Cells None /LPF Urine Amorphous Sediment Present /HPF Urine Bacteria 0 /HPF (0-FEW) Urine Mucus Mod /LPF Test 04/15/20 20:31 04/16/20 04:40 04/16/20 07:39 Glucose (Fingerstick) 190 mg/dL (70-99) 150 mg/dL (70-99) White Blood Count 12.6 x10^3/uL (4.0-11.0) Red Blood Count 4.15 x10^6/uL (4.30-5.70) Hemoglobin 13.5 g/dL (13.0-17.5) Hematocrit 39.4 % (39.0-53.0) Mean Corpuscular Volume 95 fL (79-100) Mean Corpuscular Hemoglobin 33 pg (25-35) Mean Corpuscular Hemoglobin Concent 34 g/dL (31-37) Red Cell Distribution Width 12.2 % (11.5-14.5) Platelet Count 194 x10^3/uL (140-400) Neutrophils (%) (Auto) 85 % (31-73) Lymphocytes (%) (Auto) 9 % (24-48) Monocytes (%) (Auto) 6 % (0-9) Eosinophils (%) (Auto) 0 % (0-3) Basophils (%) (Auto) 0 % (0-3) Neutrophils # (Auto) 10.7 x10^3/uL (1.8-7.7) Lymphocytes # (Auto) 1.1 x10^3/uL (1.0-4.8) Monocytes # (Auto) 0.8 x10^3/uL (0.0-1.1) Eosinophils # (Auto) 0.0 x10^3/uL (0.0-0.7) Basophils # (Auto) 0.0 x10^3/uL (0.0-0.2) Sodium Level 147 mmol/L (136-145) Potassium Level 3.2 mmol/L (3.5-5.1) Chloride Level 110 mmol/L (98-107) Carbon Dioxide Level 20 mmol/L (21-32) Anion Gap 17 (6-14) Blood Urea Nitrogen 11 mg/dL (8-26) Creatinine 0.9 mg/dL (0.7-1.3) Estimated GFR (Cockcroft-Gault) 86.7 BUN/Creatinine Ratio 12 (6-20) Glucose Level 166 mg/dL (70-99) Lactic Acid Level 0.8 mmol/L (0.4-2.0) Calcium Level 8.1 mg/dL (8.5-10.1) Total Bilirubin 0.9 mg/dL (0.2-1.0) Aspartate Amino Transf (AST/SGOT) 24 U/L (15-37) Alanine Aminotransferase (ALT/SGPT) 20 U/L (16-63) Alkaline Phosphatase 64 U/L (46-116) Ammonia 15 mcmol/L (11-34) Creatine Kinase 875 U/L (39-308) Total Protein 6.4 g/dL (6.4-8.2) Albumin 3.3 g/dL (3.4-5.0) Albumin/Globulin Ratio 1.1 (1.0-1.7) Assessment and Plan Assessmemt and Plan Problems Medical Problems: (1) Altered mental status Status: Acute (2) Seizure Status: Acute Comment Review of Relevant I have reviewed the following items vonnie (where applicable) has been applied. Medications: Current Medications Medications (Trade) Dose Ordered Sig/Danni Route PRN Reason Start Time Stop Time Status Last Admin Dose Admin Sodium Chloride 1,000 ml @ 1,000 mls/hr 1X ONCE IV 04/15/20 13:30 04/15/20 14:29 DC 04/15/20 14:23 Sodium Chloride 1,000 ml @ 0 mls/hr 1X ONCE IV 04/15/20 15:15 04/15/20 15:17 DC 04/15/20 15:25 Sodium Chloride 1,000 ml @ 150 mls/hr [id number] IV 04/15/20 15:24 04/16/20 15:23 8/18/20 04:44 Fosphenytoin Sodium (Cerebyx) 100 mg Q8HRS IV 04/15/20 20:00 04/16/20 06:17 Enoxaparin Sodium (Lovenox 40mg Syringe) 40 mg Q24H SQ 04/15/20 22:00 04/15/20 22:25 Justicifation of Admission Dx: Justifications for Admission: Justification of Admission Dx: Yes JACQUELINE STONE MD Apr 16, 2020 07:56
[2020-04-16 07:59] VITALS: BP 156/94
[2020-04-16] MEDS ORDERED: POTASSIUM CL 20MEQ D5-0.45NACL 1,000 ML IV ONE (08:00)
--- NOTE | 2020-04-16 08:08 | EKG ---
[facility] [address] [place] [address] Test Date: 2020-04-15 Test Time: 13:48:39 Pat Name: SHELBY BRIGHT Department: Room: Gender: M Candy [employer]isher: : 1960 Requested By: SHASHI DHILLON Order Number: [id number] Reading MD: Measurements Intervals [place] Rate: 102 P: 33 [place]: 170 QRS: -18 QRSD: 96 T: 74 QT: 340 QTc: 447 Interpretive Statements SINUS TACHYCARDIA LEFTWARD AXIS T ABNORMALITY IN HIGH LATERAL LEADS ABNORMAL ECG RI6.01 No previous ECG available for comparison
[2020-04-16 11:03] VITALS: BP 171/91
--- NOTE | 2020-04-16 12:01 | PDOC2 ---
NEUROLOGY CONSULT Date of Service DOS: DATE: 04/16/20 TIME: 11:41 Reason for Consult Reason for Consult: Seizure Referring Physician Referring Physician: Dr. Schofield PCP: Dr. Ahmadi Source Source: Caregiver (Friend, Carlee Villegas), Chart review, Patient History of Present Illness History of Present Illness The patient is a 59-year-old right-handed male with a history of epilepsy, followed by Dr. Mcintosh, and more recently, Ms. Heard in my office. He started h aving seizures at age 16. He was originally on phenytoin. Vimpat caused irritability. He has been on levetiracetam for several years, but this was not restarted here in the hospital. At his last appointment, we decided to wean him off the phenytoin at his request and leave him on levetiracetam alone. He has had several EEG studies including 01/05/20 showing generalized epileptic activity. His employer called yesterday for a wellness check when he did not show up for work and he was found face down a pool of blood, last normal was 04/13. Patient has been obtunded, but is a little more alert today. Past Medical History Cardiovascular: HTN, Hyperlipidemia CENTRAL NERVOUS SYSTEM: Seizure, Other (Spine injury, headaches, head injury age 8, vision loss left eye) Psych: Depression Musculoskeletal: low back pain, Other ( neck pain) Endocrine: Diabetes Past Surgical History Past Surgical History: Other ( lumbar, left eye) Family History Family History: Hypertension Social History Social History , lives alone, no alcohol or tobacco, laborer concrete plant Current Medications Current Medications Current Medications Sodium Chloride 1,000 ml @ 1,000 mls/hr 1X ONCE IV Last administered on 04/15/20at 14:23; Start 04/15/20 at 13:30; Stop 04/15/20 at 14:29; Status DC Sodium Chloride 1,000 ml @ 0 mls/hr 1X ONCE IV Last administered on 04/15/20at 15:25; Start 04/15/20 at 15:15; Stop 04/15/20 at 15:17; Status DC Ondansetron HCl (Zofran) 4 mg PRN Q8HRS PRN IV NAUSEA/VOMITING; Start 04/15/20 at 15:30; Stop 04/15/20 at 16:45; Status DC Sodium Chloride 1,000 ml @ 150 mls/hr Q6H40M IV Last administered on 04/16/20at 04:44; Start 04/15/20 at 15:24; Stop 04/16/20 at 07:55; Status DC Ondansetron HCl (Zofran) 4 mg PRN Q4HRS PRN IV NAUSEA/VOMITING; Start 04/15/20 at 16:45 Insulin Human Lispro (HumaLOG) 0-7 UNITS TIDACHC SQ ; Start 04/15/20 at 21:00 Dextrose (Dextrose 50%-Water Syringe) 12.5 gm PRN Q15MIN PRN IV SEE COMMENTS; Start 04/15/20 at 16:45 Lorazepam (Ativan Inj) 2 mg PRN Q4HRS PRN IVP SEIZURE ONLY; Start 04/15/20 at 16:45 Fosphenytoin Sodium (Cerebyx) 100 mg Q8HRS IV Last administered on 04/16/20at 06:17; Start 04/15/20 at 20:00 Enoxaparin Sodium (Lovenox 40mg Syringe) 40 mg Q24H SQ Last administered on 04/15/20at 22:25; Start 04/15/20 at 22:00 Potassium Chloride/Dextrose/ Sod Cl 1,000 ml @ 100 mls/hr Q10H ONCE IV Last administered on 04/16/20at 09:39; Start 04/16/20 at 08:00; Stop 04/16/20 at 17:59 Active Scripts Active Reported Dilantin (Phenytoin Sodium Extended) 100 Mg Capsule 300 Mg PO QHS Metformin Hcl 1,000 Mg Tablet 1,000 Mg PO BIDWMEALS Citalopram Hbr (Citalopram Hydrobromide) 40 Mg Tablet 1 Tab PO DAILY Lisinopril-Hctz 10-12.5 Mg Tab (Lisinopril/Hydrochlorothiazide) 1 Each Tablet 1 Tab PO DAILY Melatonin 3 Mg Tablet 1 Tab PO QHS Allergies Allergies: Coded Allergies: No Known Drug Allergies (Unverified , 04/15/20) ROS Review of System Negative for fever, chills, weight loss, shortness of breath, chest pain, indigestion, hematochezia, melena, and dysuria. Full 14-point review of systems is negative. Physical Exam Physical Examination General: Well-developed, well-nourished white male in no acute distress HEENT: Normocephalic andatraumatic. Temporal arteriespulsatile and nontender. Neck: Supple without bruit, no meningismus Musculoskeletal: Stability:see neurologic. Gait exam:see neurologic. Tone:see neurologic.Strength:see neurologic. Neurological: Mental Status:orientation, memory, attention span/concentration, language, fund of knowledge: does not know date, location, name of hospital.. Cranial Nerves:Pupils equal and reactive to light, extraocular movements areintact, visual gonzalez are full to confrontation. Facial sensation is normal. There is no facial asymmetry. Vestibulo-ocular reflex is intact. Palate elevates and tongue protrudes in midline. All other cranial related problems are negative except as mentioned before.Reflexes:2+ and symmetric with flexor plantar responses. Motor:4/5 strength with normal tone and bulk. Coordination:Finger-nose finger and [id number] testing are normal. Rapid alternating movements and fine finger movements are intact. Gait:not tested. Sensory:Normal pinprick, vibration, light touch, proprioception. Vitals VITALS Vital Signs Date Time Temp Pulse Resp B/P (MAP) Pulse Ox O2 Delivery O2 Flow Rate FiO2 04/16/20 11:03 98.6 88 16 171/91 (117) 97 Room Air 98.6 Labs Labs Laboratory Tests Test 04/15/20 13:24 04/15/20 13:33 04/15/20 13:40 04/15/20 19:07 Urine Opiates Screen Neg (NEG) Urine Methadone Screen Neg (NEG) Urine Barbiturates Neg (NEG) Urine Phencyclidine Screen Neg (NEG) Urine Amphetamine/Methamphetamine Neg (NEG) Urine Benzodiazepines Screen Neg (NEG) Urine Cocaine Screen Neg (NEG) Urine Cannabinoids Screen Neg (NEG) Urine Ethyl Alcohol Neg (NEG) White Blood Count 19.2 x10^3/uL (4.0-11.0) Red Blood Count 4.84 x10^6/uL (4.30-5.70) Hemoglobin 15.7 g/dL (13.0-17.5) Hematocrit 45.9 % (39.0-53.0) Mean Corpuscular Volume 95 fL (79-100) Mean Corpuscular Hemoglobin 33 pg (25-35) Mean Corpuscular Hemoglobin Concent 34 g/dL (31-37) Red Cell Distribution Width 12.3 % (11.5-14.5) Platelet Count 232 x10^3/uL (140-400) Neutrophils (%) (Auto) 94 % (31-73) Lymphocytes (%) (Auto) 2 % (24-48) Monocytes (%) (Auto) 4 % (0-9) Eosinophils (%) (Auto) 0 % (0-3) Basophils (%) (Auto) 0 % (0-3) Neutrophils # (Auto) 18.1 x10^3/uL (1.8-7.7) Lymphocytes # (Auto) 0.3 x10^3/uL (1.0-4.8) Monocytes # (Auto) 0.8 x10^3/uL (0.0-1.1) Eosinophils # (Auto) 0.0 x10^3/uL (0.0-0.7) Basophils # (Auto) 0.0 x10^3/uL (0.0-0.2) Segmented Neutrophils % 91 % (35-66) Band Neutrophils % 6 % (0-9) Monocytes % 3 % (0-10) Toxic Granulation Slight Toxic Vacuolation Slight Platelet Estimate Adequate (ADEQUATE) Prothrombin Time 12.6 SEC (11.7-14.0) Prothromb Time International Ratio 1.0 (0.8-1.1) Sodium Level 142 mmol/L (136-145) Potassium Level 3.9 mmol/L (3.5-5.1) Chloride Level 103 mmol/L (98-107) Carbon Dioxide Level 21 mmol/L (21-32) Anion Gap 18 (6-14) Blood Urea Nitrogen 13 mg/dL (8-26) Creatinine 1.0 mg/dL (0.7-1.3) Estimated GFR (Cockcroft-Gault) 76.7 BUN/Creatinine Ratio 13 (6-20) Glucose Level 210 mg/dL (70-99) Lactic Acid Level 2.8 mmol/L (0.4-2.0) 2.5 mmol/L (0.4-2.0) Calcium Level 9.2 mg/dL (8.5-10.1) Total Bilirubin 0.5 mg/dL (0.2-1.0) Aspartate Amino Transf (AST/SGOT) 23 U/L (15-37) Alanine Aminotransferase (ALT/SGPT) 31 U/L (16-63) Alkaline Phosphatase 87 U/L (46-116) Creatine Kinase 673 U/L (39-308) Troponin I Quantitative < 0.017 ng/mL (0.000-0.055) Total Protein 7.5 g/dL (6.4-8.2) Albumin 4.4 g/dL (3.4-5.0) Albumin/Globulin Ratio 1.4 (1.0-1.7) Phenytoin (Dilantin) Level < 10.0 mcg/mL (10.0-20.0) Phenytoin Last Dose Date 04/13/20 Phenytoin Last Dose Time 0900 Ethyl Alcohol Level < 10 mg/dL (0-10) Urine Collection Type Unknown Urine Color Yellow Urine Clarity Clear Urine pH 5.0 (<5.0-8.0) Urine Specific Upatoi >=1.030 (1.000-1.030) Urine Protein 30 mg/dL (NEG-TRACE) Urine Glucose (UA) >=1000 mg/dL (NEG) Urine Ketones (Stick) >=80 mg/dL (NEG) Urine Blood Moderate (NEG) Urine Nitrite Negative (NEG) Urine Bilirubin Negative (NEG) Urine Urobilinogen Dipstick 0.2 mg/dL (0.2 mg/dL) Urine Leukocyte Esterase Negative (NEG) Urine RBC 0 /HPF (0-2) Urine WBC Rare /HPF (0-4) Urine Squamous Epithelial Cells None /LPF Urine Amorphous Sediment Present /HPF Urine Bacteria 0 /HPF (0-FEW) Urine Mucus Mod /LPF Test 04/15/20 20:31 04/16/20 04:40 04/16/20 07:39 04/16/20 11:34 Glucose (Fingerstick) 190 mg/dL (70-99) 150 mg/dL (70-99) 177 mg/dL (70-99) White Blood Count 12.6 x10^3/uL (4.0-11.0) Red Blood Count 4.15 x10^6/uL (4.30-5.70) Hemoglobin 13.5 g/dL (13.0-17.5) Hematocrit 39.4 % (39.0-53.0) Mean Corpuscular Volume 95 fL (79-100) Mean Corpuscular Hemoglobin 33 pg (25-35) Mean Corpuscular Hemoglobin Concent 34 g/dL (31-37) Red Cell Distribution Width 12.2 % (11.5-14.5) Platelet Count 194 x10^3/uL (140-400) Neutrophils (%) (Auto) 85 % (31-73) Lymphocytes (%) (Auto) 9 % (24-48) Monocytes (%) (Auto) 6 % (0-9) Eosinophils (%) (Auto) 0 % (0-3) Basophils (%) (Auto) 0 % (0-3) Neutrophils # (Auto) 10.7 x10^3/uL (1.8-7.7) Lymphocytes # (Auto) 1.1 x10^3/uL (1.0-4.8) Monocytes # (Auto) 0.8 x10^3/uL (0.0-1.1) Eosinophils # (Auto) 0.0 x10^3/uL (0.0-0.7) Basophils # (Auto) 0.0 x10^3/uL (0.0-0.2) Sodium Level 147 mmol/L (136-145) Potassium Level 3.2 mmol/L (3.5-5.1) Chloride Level 110 mmol/L (98-107) Carbon Dioxide Level 20 mmol/L (21-32) Anion Gap 17 (6-14) Blood Urea Nitrogen 11 mg/dL (8-26) Creatinine 0.9 mg/dL (0.7-1.3) Estimated GFR (Cockcroft-Gault) 86.7 BUN/Creatinine Ratio 12 (6-20) Glucose Level 166 mg/dL (70-99) Lactic Acid Level 0.8 mmol/L (0.4-2.0) Calcium Level 8.1 mg/dL (8.5-10.1) Total Bilirubin 0.9 mg/dL (0.2-1.0) Aspartate Amino Transf (AST/SGOT) 24 U/L (15-37) Alanine Aminotransferase (ALT/SGPT) 20 U/L (16-63) Alkaline Phosphatase 64 U/L (46-116) Ammonia 15 mcmol/L (11-34) Creatine Kinase 875 U/L (39-308) Total Protein 6.4 g/dL (6.4-8.2) Albumin 3.3 g/dL (3.4-5.0) Albumin/Globulin Ratio 1.1 (1.0-1.7) Laboratory Tests Test 04/15/20 13:24 04/15/20 13:33 04/15/20 13:40 04/15/20 19:07 Urine Opiates Screen Neg (NEG) Urine Methadone Screen Neg (NEG) Urine Barbiturates Neg (NEG) Urine Phencyclidine Screen Neg (NEG) Urine Amphetamine/Methamphetamine Neg (NEG) Urine Benzodiazepines Screen Neg (NEG) Urine Cocaine Screen Neg (NEG) Urine Cannabinoids Screen Neg (NEG) Urine Ethyl Alcohol Neg (NEG) White Blood Count 19.2 x10^3/uL (4.0-11.0) Red Blood Count 4.84 x10^6/uL (4.30-5.70) Hemoglobin 15.7 g/dL (13.0-17.5) Hematocrit 45.9 % (39.0-53.0) Mean Corpuscular Volume 95 fL (79-100) Mean Corpuscular Hemoglobin 33 pg (25-35) Mean Corpuscular Hemoglobin Concent 34 g/dL (31-37) Red Cell Distribution Width 12.3 % (11.5-14.5) Platelet Count 232 x10^3/uL (140-400) Neutrophils (%) (Auto) 94 % (31-73) Lymphocytes (%) (Auto) 2 % (24-48) Monocytes (%) (Auto) 4 % (0-9) Eosinophils (%) (Auto) 0 % (0-3) Basophils (%) (Auto) 0 % (0-3) Neutrophils # (Auto) 18.1 x10^3/uL (1.8-7.7) Lymphocytes # (Auto) 0.3 x10^3/uL (1.0-4.8) Monocytes # (Auto) 0.8 x10^3/uL (0.0-1.1) Eosinophils # (Auto) 0.0 x10^3/uL (0.0-0.7) Basophils # (Auto) 0.0 x10^3/uL (0.0-0.2) Segmented Neutrophils % 91 % (35-66) Band Neutrophils % 6 % (0-9) Monocytes % 3 % (0-10) Toxic Granulation Slight Toxic Vacuolation Slight Platelet Estimate Adequate (ADEQUATE) Prothrombin Time 12.6 SEC (11.7-14.0) Prothromb Time International Ratio 1.0 (0.8-1.1) Sodium Level 142 mmol/L (136-145) Potassium Level 3.9 mmol/L (3.5-5.1) Chloride Level 103 mmol/L (98-107) Carbon Dioxide Level 21 mmol/L (21-32) Anion Gap 18 (6-14) Blood Urea Nitrogen 13 mg/dL (8-26) Creatinine 1.0 mg/dL (0.7-1.3) Estimated GFR (Cockcroft-Gault) 76.7 BUN/Creatinine Ratio 13 (6-20) Glucose Level 210 mg/dL (70-99) Lactic Acid Level 2.8 mmol/L (0.4-2.0) 2.5 mmol/L (0.4-2.0) Calcium Level 9.2 mg/dL (8.5-10.1) Total Bilirubin 0.5 mg/dL (0.2-1.0) Aspartate Amino Transf (AST/SGOT) 23 U/L (15-37) Alanine Aminotransferase (ALT/SGPT) 31 U/L (16-63) Alkaline Phosphatase 87 U/L (46-116) Creatine Kinase 673 U/L (39-308) Troponin I Quantitative < 0.017 ng/mL (0.000-0.055) Total Protein 7.5 g/dL (6.4-8.2) Albumin 4.4 g/dL (3.4-5.0) Albumin/Globulin Ratio 1.4 (1.0-1.7) Phenytoin (Dilantin) Level < 10.0 mcg/mL (10.0-20.0) Phenytoin Last Dose Date 04/13/20 Phenytoin Last Dose Time 0900 Ethyl Alcohol Level < 10 mg/dL (0-10) Urine Collection Type Unknown Urine Color Yellow Urine Clarity Clear Urine pH 5.0 (<5.0-8.0) Urine Specific Upatoi >=1.030 (1.000-1.030) Urine Protein 30 mg/dL (NEG-TRACE) Urine Glucose (UA) >=1000 mg/dL (NEG) Urine Ketones (Stick) >=80 mg/dL (NEG) Urine Blood Moderate (NEG) Urine Nitrite Negative (NEG) Urine Bilirubin Negative (NEG) Urine Urobilinogen Dipstick 0.2 mg/dL (0.2 mg/dL) Urine Leukocyte Esterase Negative (NEG) Urine RBC 0 /HPF (0-2) Urine WBC Rare /HPF (0-4) Urine Squamous Epithelial Cells None /LPF Urine Amorphous Sediment Present /HPF Urine Bacteria 0 /HPF (0-FEW) Urine Mucus Mod /LPF Test 04/15/20 20:31 04/16/20 04:40 04/16/20 07:39 04/16/20 11:34 Glucose (Fingerstick) 190 mg/dL (70-99) 150 mg/dL (70-99) 177 mg/dL (70-99) White Blood Count 12.6 x10^3/uL (4.0-11.0) Red Blood Count 4.15 x10^6/uL (4.30-5.70) Hemoglobin 13.5 g/dL (13.0-17.5) Hematocrit 39.4 % (39.0-53.0) Mean Corpuscular Volume 95 fL (79-100) Mean Corpuscular Hemoglobin 33 pg (25-35) Mean Corpuscular Hemoglobin Concent 34 g/dL (31-37) Red Cell Distribution Width 12.2 % (11.5-14.5) Platelet Count 194 x10^3/uL (140-400) Neutrophils (%) (Auto) 85 % (31-73) Lymphocytes (%) (Auto) 9 % (24-48) Monocytes (%) (Auto) 6 % (0-9) Eosinophils (%) (Auto) 0 % (0-3) Basophils (%) (Auto) 0 % (0-3) Neutrophils # (Auto) 10.7 x10^3/uL (1.8-7.7) Lymphocytes # (Auto) 1.1 x10^3/uL (1.0-4.8) Monocytes # (Auto) 0.8 x10^3/uL (0.0-1.1) Eosinophils # (Auto) 0.0 x10^3/uL (0.0-0.7) Basophils # (Auto) 0.0 x10^3/uL (0.0-0.2) Sodium Level 147 mmol/L (136-145) Potassium Level 3.2 mmol/L (3.5-5.1) Chloride Level 110 mmol/L (98-107) Carbon Dioxide Level 20 mmol/L (21-32) Anion Gap 17 (6-14) Blood Urea Nitrogen 11 mg/dL (8-26) Creatinine 0.9 mg/dL (0.7-1.3) Estimated GFR (Cockcroft-Gault) 86.7 BUN/Creatinine Ratio 12 (6-20) Glucose Level 166 mg/dL (70-99) Lactic Acid Level 0.8 mmol/L (0.4-2.0) Calcium Level 8.1 mg/dL (8.5-10.1) Total Bilirubin 0.9 mg/dL (0.2-1.0) Aspartate Amino Transf (AST/SGOT) 24 U/L (15-37) Alanine Aminotransferase (ALT/SGPT) 20 U/L (16-63) Alkaline Phosphatase 64 U/L (46-116) Ammonia 15 mcmol/L (11-34) Creatine Kinase 875 U/L (39-308) Total Protein 6.4 g/dL (6.4-8.2) Albumin 3.3 g/dL (3.4-5.0) Albumin/Globulin Ratio 1.1 (1.0-1.7) Images Images CT Head without IV contrast INDICATION: Reason: head and neck Trauma / Spl. Instructions: / History: TECHNIQUE: Multi-detector row CT images were obtained of the head without the use of IV contrast. All CT scans performed at this facility utilize dose optimization techniques as appropriate to the exam, including the following: Automated exposure control and adjustment of the mA and/or KV according to patient size (this includes techniques or standardized protocols for targeted exams where dose is indication/reason for exam). COMPARISON: None FINDINGS: BRAIN PARENCHYMA: No evidence of acute intraparenchymal hemorrhage or infarct. No abnormal parenchymal density or mass. VENTRICLES & EXTRA-AXIAL SPACES: Ventricles are within normal limits. Basilar cisterns are patent. No pathologic extra-axial fluid collection or mass. ORBITS: Orbital contents are unremarkable. SINUSES: Visualized paranasal sinuses and mastoid air cells are clear. OSSEOUS & SOFT TISSUES: Calvarium and skull base are intact. IMPRESSION: No acute intracranial pathology. EXAM: CT Cervical Spine without IV contrast INDICATION: Reason: head and neck Trauma / Spl. Instructions: / History: TECHNIQUE: Multi-detector row CT images were obtained through the cervical spine without the use of IV contrast. Post-processing sagittal and coronal reconstructed images were obtained for interpretation. All CT scans performed at this facility utilize dose optimization techniques as appropriate to the exam, including the following: Automated exposure control and adjustment of the mA and/or KV according to patient size (this includes techniques or standardized protocols for targeted exams where dose is indication/reason for exam). COMPARISON: None FINDINGS: CRANIOCERVICAL JUNCTION: Unremarkable. ALIGNMENT: Alignment is within normal limits. OSSEOUS: No evidence of fracture or bone destruction. DISC SPACES: Minimal disc degenerative change with uncovertebral hypertrophy best appreciated at C3-C4. FACET JOINTS: Minimal facet degenerative changes, most notable at C7-T1, right greater than left. SPINAL CANAL: Unremarkable. NEUROFORAMINA: Unremarkable. SOFT TISSUES: Unremarkable. IMPRESSION: No acute traumatic findings in the cervical spine. Assessment/Plan Assessment/Plan Impression: Generalized epilepsy Breakthrough seizure, he is supposed to be on a phenytoin taper and levetiracetam. Prolonged postictal state, he may have had a concussion as well. Recommendations: For now I will continue phenytoin and levetiracetam. Considered EEG if he does not waken in the next day Observation Discussed with his friend, Carlee Villegas. Thank you for letting me help the patient care. MARTHA NICHOLSON MD Apr 16, 2020 12:01
--- NOTE | 2020-04-16 12:55 | NUR ---
SW following. Reviewed chart and discussed with RN. Pt from home. Pt on room air. Pt is NPO and neurology has been consulted. Pt has a hx of seizures. Pt confused. Pt was not able to tell SW his name. SW will follow for discharge planning.
[2020-04-16 15:07] VITALS: BP 166/82
[2020-04-16] MEDS: levETIRAcetam 250 MG TABLET PO SCH ×2 (15:27→21:00)
[2020-04-16 19:00] VITALS: BP 152/97
[2020-04-16] MEDS: PHENYTOIN SODIUM EXTENDED 100 MG CAPSULE PO SCH (21:00)
[2020-04-16] MEDS: ENOXAPARIN 40 MG/0.4 ML SYRINGE. SQ SCH (21:01)
[2020-04-16 23:11] VITALS: BP 137/85
[2020-04-17 03:00] VITALS: BP 130/75
[2020-04-17 07:00] VITALS: BP 149/90
[2020-04-17] MEDS: INSULIN LISPRO 300 UNITS/3 ML VIAL. SQ SCH ×4 (07:30→21:00)
--- NOTE | 2020-04-17 08:14 | PDOC ---
[facility] PROGRESS NOTE Date of Service DOS: DATE: 04/17/20 TIME: 08:14 Chief Complaint Chief Complaint A/P: Acute encephalopathy - likely post-ictal from seizure, will place on seizure precautions. Improving, still confused Elevated CK -likely mild rhabdo from being found down. Will repeat level in the morning. Leukocytosis -likely from fall and possible seizure. Improved. Chest x-ray ruled out any pulmonary pathology. No other signs of infection. Afebrile. Depression DM2 -we will place on sliding scale while inpatient. HLD -will hold statin for n.p.o. is confused. HTN -we will give IV as needed hydralazine. Generalized epilepsy Seizure disorder -on Dilantin. low level. Consult neurology. Concussion Plan Continue both phenytoin and levetiracetam. MRI brain Not ready for discharge PT/OT FEN - ADAT PPX - SCDs FULL CODE Dispo - Inpatient History of Present Illness History of Present Illness Mr Cochran is a 59yo M w/ PMHx depression, seizure disorder, DM2, HLD, HTN who comes to ED via EMS from home. He was found facedown in a pool of blood by EMS after police were contacted for a wellness check by his employer after he did not show up to work. GCS 9. Last seen 04/13/[address] head, neck and face negative. Lactate 2.8, CK 673, INR 1, WBC 19.2, Hb 15.7, platelets 232, NA 142, K3.9, BUN 13, CR 1, glucose 210. Troponin negative, urine drug screen negative, alcohol negative. Urine positive for glucosuria, ketones, blood. Initially only opened his eyes to sternal rub and moans. 04/16: Afebrile. Seen bedside today he is conversational. Does have paucity of speech. Does not voice any complaints of pain. Does not recall the events that brought him here. WBC improved Much more alert today. Speaking full sentences. Having a little bit of a problem with object recognition and complains of diplopia, headache, a little bit of confused thoughts. He is definitely confused about his epilepsy meds as he told neurology that he is not on Dilantin and that he is on levetiracetam, but he also admits he has been a little confused about that. He does recall that he has a masters in [place] and works in [employer], though he is confused and frustrated about not remembering the name of the company he works for or his bosses name but he does remember that his boss was the one who called the police to find him. Vitals/I&O Vitals/I&O: Vital Signs Date Time Temp Pulse Resp B/P (MAP) Pulse Ox O2 Delivery O2 Flow Rate FiO2 04/17/20 03:00 98.4 67 20 130/75 (93) 98 Room Air 98.4 I & O 04/16/20 04/16/20 04/17/20 15:00 23:00 07:00 Intake Total 0 ml 650 ml 1000 ml Output Total 500 ml 1000 ml 1250 ml Balance -500 ml -350 ml -250 ml Physical Exam General: Alert, Cooperative, No acute distress Abdomen: Normal bowel sounds, Soft, No tenderness, No hepatosplenomegaly, No masses Extremities: No clubbing, No cyanosis, No edema, Normal pulses, No tenderness/swelling Skin: No rashes, No breakdown, No significant lesion Labs Labs: Laboratory Tests Test 04/16/20 11:34 04/16/20 16:58 04/16/20 20:39 04/17/20 07:28 Glucose (Fingerstick) 177 mg/dL (70-99) 194 mg/dL (70-99) 195 mg/dL (70-99) 149 mg/dL (70-99) Assessment and Plan Assessmemt and Plan Problems Medical Problems: (1) Altered mental status Status: Acute (2) Seizure Status: Acute Comment Review of Relevant I have reviewed the following items vonnie (where applicable) has been applied. Medications: Current Medications Medications (Trade) Dose Ordered Sig/Danni Route PRN Reason Start Time Stop Time Status Last Admin Dose Admin Phenytoin Sodium (Dilantin) 300 mg HS PO 04/16/20 21:00 04/16/20 21:00 Levetiracetam (Keppra) 750 mg BID PO 04/16/20 12:30 04/16/20 21:00 Justicifation of Admission Dx: Justifications for Admission: Justification of Admission Dx: Yes JACQUELINE STONE MD Apr 17, 2020 08:14
[2020-04-17] MEDS: levETIRAcetam 250 MG TABLET PO SCH ×2 (08:41→22:19)
[2020-04-17 09:49] LABS: CREATININE 0.7 mg/dL (0.7-1.3); GFR 115.8; MAGNESIUM 2.3 mg/dL (1.8-2.4); POTASSIUM 3.5 mmol/L (3.5-5.1)
--- NOTE | 2020-04-17 10:01 | PDOC ---
PROGRESS NOTES Assessment Problems Medical Problems: (1) Altered mental status Status: Acute (2) Seizure Status: Acute Generalized epilepsy Breakthrough seizure, he is supposed to be on a phenytoin taper and levetiracetam according to our office notes. He says that he is just on phenytoin and does not remember taking levetiracetam. Prolonged postictal state, probably had a concussion as well. Leukocytosis, mild rhabdomyolysis Plan Continue both phenytoin and levetiracetam. MRI brain Hold on repeat EEG as he is better Not ready for discharge PT/OT Subjective Complains of diplopia, headache, addled thinking Objective Vital Signs Date Time Temp Pulse Resp B/P (MAP) Pulse Ox O2 Delivery O2 Flow Rate FiO2 04/17/20 08:30 Room Air 04/17/20 07:00 98.7 69 17 149/90 (109) 96 98.7 Intake and Output 04/17/20 07:00 Intake Total 1650 ml Output Total 2750 ml Balance -1100 ml Intake Oral 1650 ml Output Urine Total 2750 ml PHYSICAL EXAM Alert. Oriented to time, place and person.Has trouble expressing his thoughts PERRL. EOMI. CN: no focal findings. Muscle tone: normal. Muscle strength: 4/5 DTR: 2+ Plantar reflex: flexor Gait: not examined in bed. Sensory exam: no abnormal findings. No cerebellar signs elicited. Review of Relevant I have reviewed the following items vonnie (where applicable) has been applied. Labs Laboratory Tests Test 04/15/20 13:24 04/15/20 13:33 04/15/20 13:40 04/15/20 19:07 Urine Opiates Screen Neg (NEG) Urine Methadone Screen Neg (NEG) Urine Barbiturates Neg (NEG) Urine Phencyclidine Screen Neg (NEG) Urine Amphetamine/Methamphetamine Neg (NEG) Urine Benzodiazepines Screen Neg (NEG) Urine Cocaine Screen Neg (NEG) Urine Cannabinoids Screen Neg (NEG) Urine Ethyl Alcohol Neg (NEG) White Blood Count 19.2 x10^3/uL (4.0-11.0) Red Blood Count 4.84 x10^6/uL (4.30-5.70) Hemoglobin 15.7 g/dL (13.0-17.5) Hematocrit 45.9 % (39.0-53.0) Mean Corpuscular Volume 95 fL (79-100) Mean Corpuscular Hemoglobin 33 pg (25-35) Mean Corpuscular Hemoglobin Concent 34 g/dL (31-37) Red Cell Distribution Width 12.3 % (11.5-14.5) Platelet Count 232 x10^3/uL (140-400) Neutrophils (%) (Auto) 94 % (31-73) Lymphocytes (%) (Auto) 2 % (24-48) Monocytes (%) (Auto) 4 % (0-9) Eosinophils (%) (Auto) 0 % (0-3) Basophils (%) (Auto) 0 % (0-3) Neutrophils # (Auto) 18.1 x10^3/uL (1.8-7.7) Lymphocytes # (Auto) 0.3 x10^3/uL (1.0-4.8) Monocytes # (Auto) 0.8 x10^3/uL (0.0-1.1) Eosinophils # (Auto) 0.0 x10^3/uL (0.0-0.7) Basophils # (Auto) 0.0 x10^3/uL (0.0-0.2) Segmented Neutrophils % 91 % (35-66) Band Neutrophils % 6 % (0-9) Monocytes % 3 % (0-10) Toxic Granulation Slight Toxic Vacuolation Slight Platelet Estimate Adequate (ADEQUATE) Prothrombin Time 12.6 SEC (11.7-14.0) Prothromb Time International Ratio 1.0 (0.8-1.1) Sodium Level 142 mmol/L (136-145) Potassium Level 3.9 mmol/L (3.5-5.1) Chloride Level 103 mmol/L (98-107) Carbon Dioxide Level 21 mmol/L (21-32) Anion Gap 18 (6-14) Blood Urea Nitrogen 13 mg/dL (8-26) Creatinine 1.0 mg/dL (0.7-1.3) Estimated GFR (Cockcroft-Gault) 76.7 BUN/Creatinine Ratio 13 (6-20) Glucose Level 210 mg/dL (70-99) Lactic Acid Level 2.8 mmol/L (0.4-2.0) 2.5 mmol/L (0.4-2.0) Calcium Level 9.2 mg/dL (8.5-10.1) Total Bilirubin 0.5 mg/dL (0.2-1.0) Aspartate Amino Transf (AST/SGOT) 23 U/L (15-37) Alanine Aminotransferase (ALT/SGPT) 31 U/L (16-63) Alkaline Phosphatase 87 U/L (46-116) Creatine Kinase 673 U/L (39-308) Troponin I Quantitative < 0.017 ng/mL (0.000-0.055) Total Protein 7.5 g/dL (6.4-8.2) Albumin 4.4 g/dL (3.4-5.0) Albumin/Globulin Ratio 1.4 (1.0-1.7) Phenytoin (Dilantin) Level < 10.0 mcg/mL (10.0-20.0) Phenytoin Last Dose Date 04/13/20 Phenytoin Last Dose Time 0900 Ethyl Alcohol Level < 10 mg/dL (0-10) Urine Collection Type Unknown Urine Color Yellow Urine Clarity Clear Urine pH 5.0 (<5.0-8.0) Urine Specific [place] >=1.030 (1.000-1.030) Urine Protein 30 mg/dL (NEG-TRACE) Urine Glucose (UA) >=1000 mg/dL (NEG) Urine Ketones (Stick) >=80 mg/dL (NEG) Urine Blood Moderate (NEG) Urine Nitrite Negative (NEG) Urine Bilirubin Negative (NEG) Urine Urobilinogen Dipstick 0.2 mg/dL (0.2 mg/dL) Urine Leukocyte Esterase Negative (NEG) Urine RBC 0 /HPF (0-2) Urine WBC Rare /HPF (0-4) Urine Squamous Epithelial Cells None /LPF Urine Amorphous Sediment Present /HPF Urine Bacteria 0 /HPF (0-FEW) Urine Mucus Mod /LPF Test 04/15/20 20:31 04/16/20 04:40 04/16/20 07:39 04/16/20 11:34 Glucose (Fingerstick) 190 mg/dL (70-99) 150 mg/dL (70-99) 177 mg/dL (70-99) White Blood Count 12.6 x10^3/uL (4.0-11.0) Red Blood Count 4.15 x10^6/uL (4.30-5.70) Hemoglobin 13.5 g/dL (13.0-17.5) Hematocrit 39.4 % (39.0-53.0) Mean Corpuscular Volume 95 fL (79-100) Mean Corpuscular Hemoglobin 33 pg (25-35) Mean Corpuscular Hemoglobin Concent 34 g/dL (31-37) Red Cell Distribution Width 12.2 % (11.5-14.5) Platelet Count 194 x10^3/uL (140-400) Neutrophils (%) (Auto) 85 % (31-73) Lymphocytes (%) (Auto) 9 % (24-48) Monocytes (%) (Auto) 6 % (0-9) Eosinophils (%) (Auto) 0 % (0-3) Basophils (%) (Auto) 0 % (0-3) Neutrophils # (Auto) 10.7 x10^3/uL (1.8-7.7) Lymphocytes # (Auto) 1.1 x10^3/uL (1.0-4.8) Monocytes # (Auto) 0.8 x10^3/uL (0.0-1.1) Eosinophils # (Auto) 0.0 x10^3/uL (0.0-0.7) Basophils # (Auto) 0.0 x10^3/uL (0.0-0.2) Sodium Level 147 mmol/L (136-145) Potassium Level 3.2 mmol/L (3.5-5.1) Chloride Level 110 mmol/L (98-107) Carbon Dioxide Level 20 mmol/L (21-32) Anion Gap 17 (6-14) Blood Urea Nitrogen 11 mg/dL (8-26) Creatinine 0.9 mg/dL (0.7-1.3) Estimated GFR (Cockcroft-Gault) 86.7 BUN/Creatinine Ratio 12 (6-20) Glucose Level 166 mg/dL (70-99) Lactic Acid Level 0.8 mmol/L (0.4-2.0) Calcium Level 8.1 mg/dL (8.5-10.1) Total Bilirubin 0.9 mg/dL (0.2-1.0) Aspartate Amino Transf (AST/SGOT) 24 U/L (15-37) Alanine Aminotransferase (ALT/SGPT) 20 U/L (16-63) Alkaline Phosphatase 64 U/L (46-116) Ammonia 15 mcmol/L (11-34) Creatine Kinase 875 U/L (39-308) Total Protein 6.4 g/dL (6.4-8.2) Albumin 3.3 g/dL (3.4-5.0) Albumin/Globulin Ratio 1.1 (1.0-1.7) Test 04/16/20 16:58 04/16/20 20:39 04/17/20 07:28 04/17/20 08:53 Glucose (Fingerstick) 194 mg/dL (70-99) 195 mg/dL (70-99) 149 mg/dL (70-99) Sodium Level 138 mmol/L (136-145) Potassium Level 3.5 mmol/L (3.5-5.1) Chloride Level 102 mmol/L (98-107) Carbon Dioxide Level 24 mmol/L (21-32) Anion Gap 12 (6-14) Blood Urea Nitrogen 10 mg/dL (8-26) Creatinine 0.7 mg/dL (0.7-1.3) Estimated GFR (Cockcroft-Gault) 115.8 Glucose Level 168 mg/dL (70-99) Calcium Level 9.0 mg/dL (8.5-10.1) Magnesium Level 2.3 mg/dL (1.8-2.4) Laboratory Tests Test 04/16/20 11:34 04/16/20 16:58 04/16/20 20:39 04/17/20 07:28 Glucose (Fingerstick) 177 mg/dL (70-99) 194 mg/dL (70-99) 195 mg/dL (70-99) 149 mg/dL (70-99) Test 04/17/20 08:53 Sodium Level 138 mmol/L (136-145) Potassium Level 3.5 mmol/L (3.5-5.1) Chloride Level 102 mmol/L (98-107) Carbon Dioxide Level 24 mmol/L (21-32) Anion Gap 12 (6-14) Blood Urea Nitrogen 10 mg/dL (8-26) Creatinine 0.7 mg/dL (0.7-1.3) Estimated GFR (Cockcroft-Gault) 115.8 Glucose Level 168 mg/dL (70-99) Calcium Level 9.0 mg/dL (8.5-10.1) Magnesium Level 2.3 mg/dL (1.8-2.4) Microbiology 8/17/20 Blood Culture - Preliminary, Resulted NO GROWTH AFTER 1 DAY Medications Current Medications Sodium Chloride 1,000 ml @ 1,000 mls/hr 1X ONCE IV Last administered on 04/15/20at 14:23; Start 04/15/20 at 13:30; Stop 04/15/20 at 14:29; Status DC Sodium Chloride 1,000 ml @ 0 mls/hr 1X ONCE IV Last administered on 04/15/20at 15:25; Start 04/15/20 at 15:15; Stop 04/15/20 at 15:17; Status DC Ondansetron HCl (Zofran) 4 mg PRN Q8HRS PRN IV NAUSEA/VOMITING; Start 04/15/20 at 15:30; Stop 04/15/20 at 16:45; Status DC Sodium Chloride 1,000 ml @ 150 mls/hr Q6H40M IV Last administered on 04/16/20at 04:44; Start 04/15/20 at 15:24; Stop 04/16/20 at 07:55; Status DC Ondansetron HCl (Zofran) 4 mg PRN Q4HRS PRN IV NAUSEA/VOMITING; Start 04/15/20 at 16:45 Insulin Human Lispro (HumaLOG) 0-7 UNITS TIDACHC SQ ; Start 04/15/20 at 21:00 Dextrose (Dextrose 50%-Water Syringe) 12.5 gm PRN Q15MIN PRN IV SEE COMMENTS; Start 04/15/20 at 16:45 Lorazepam (Ativan Inj) 2 mg PRN Q4HRS PRN IVP SEIZURE ONLY; Start 04/15/20 at 16:45 Fosphenytoin Sodium (Cerebyx) 100 mg Q8HRS IV Last administered on 04/16/20at 06:17; Start 04/15/20 at 20:00; Stop 04/16/20 at 11:42; Status DC Enoxaparin Sodium (Lovenox 40mg Syringe) 40 mg Q24H SQ Last administered on 04/16/20at 21:01; Start 04/15/20 at 22:00 Potassium Chloride/Dextrose/ Sod Cl 1,000 ml @ 100 mls/hr Q10H ONCE IV Last administered on 04/16/20at 09:39; Start 04/16/20 at 08:00; Stop 04/16/20 at 17:59; Status DC Phenytoin Sodium (Dilantin) 300 mg HS PO Last administered on 04/16/20at 21:00; Start 04/16/20 at 21:00 Levetiracetam (Keppra) 750 mg BID PO Last administered on 04/17/20at 08:41; Start 04/16/20 at 12:30 Active Scripts Active Reported Dilantin (Phenytoin Sodium Extended) 100 Mg Capsule 300 Mg PO QHS Metformin Hcl 1,000 Mg Tablet 1,000 Mg PO BIDWMEALS Citalopram Hbr (Citalopram Hydrobromide) 40 Mg Tablet 1 Tab PO DAILY Lisinopril-Hctz 10-12.5 Mg Tab (Lisinopril/Hydrochlorothiazide) 1 Each Tablet 1 Tab PO DAILY Melatonin 3 Mg Tablet 1 Tab PO QHS Vitals/I & O Vital Sign - Last 24 Hours 04/16/20 04/16/20 04/16/20 04/16/20 11:03 15:07 19:00 20:00 Temp 98.6 98.5 98.4 98.6 98.5 98.4 Pulse 88 93 78 Resp 16 16 20 B/P (MAP) 171/91 (117) 166/82 (110) 152/97 (115) Pulse Ox 97 96 97 O2 Delivery Room Air Room Air Room Air Room Air 04/16/20 04/17/20 04/17/20 04/17/20 23:11 03:00 07:00 08:30 Temp 98.8 98.4 98.7 98.8 98.4 98.7 Pulse 76 67 69 Resp 20 20 17 B/P (MAP) 137/85 (102) 130/75 (93) 149/90 (109) Pulse Ox 99 98 96 O2 Delivery Room Air Room Air Room Air Room Air Intake and Output 04/16/20 04/16/20 04/17/20 15:00 23:00 07:00 Intake Total 0 ml 650 ml 1000 ml Output Total 500 ml 1000 ml 1250 ml Balance -500 ml -350 ml -250 ml Justicifation of Admission Dx: Justifications for Admission: Justification of Admission Dx: Yes MARTHA NICHOLSON MD Apr 17, 2020 10:01
[2020-04-17 11:00] VITALS: BP 140/83
--- NOTE | 2020-04-17 11:37 | NUR ---
SW following. Reviewed chart and discussed with RN. Pt from home. Pt on room air. Pt's diet advanced to a soft diet. Pt continues to have double vision and will have an MRI of the brain today per RN. Pt's confusion improving, a/o x2. Pt is a possible discharge home today. No PT/OT needs and pt would discharge on oral medications. No anticipated SW needs at discharge.
--- NOTE | 2020-04-17 12:26 | RAD ---
EXAM: Brain MRI without contrast. HISTORY: Seizures. Trauma. Diplopia. TECHNIQUE: Multiplanar, multisequence magnetic resonance imaging of the brain was performed without contrast. COMPARISON: CT dated 04/15/2020. FINDINGS: There is no residual diffusion to suggest acute or subacute infarction. There is no susceptibility effect to suggest hemorrhage. There is no mass effect or midline shift. There is no hydrocephalus. There are few foci of signal change within the cerebral white matter, a nonspecific finding. There is abnormal signal within the left lobe due to retinal detachment and possible superimposed posterior vitreous hemorrhage. There is evidence of left lens surgery. The mastoid air cells are clear. There are normal flow voids within the cerebral vessels. There is no suspicious calvarial lesion. The hippocampi demonstrate symmetric size and signal. There is no heterotopia or malformation of cortical development. IMPRESSION: 1. No acute intracranial finding. 2. Few tiny foci of signal change within the cerebral white matter. This is most commonly due to chronic small vessel disease in patients of this age. 3. Left retinal detachment and possible superimposed vitreous hemorrhage. Electronically signed by: Miriam Arreguin MD (04/17/2020 12:23 PM) [facility]
--- NOTE | 2020-04-17 13:00 | NUR ---
Telemetry monitored dc'd per Dr. Schofield. No longer a need for telemetry. Will continue to monitor.
[2020-04-17 15:00] VITALS: BP 152/88
[2020-04-17 19:00] VITALS: BP 185/107
[2020-04-17] MEDS: PHENYTOIN SODIUM EXTENDED 100 MG CAPSULE PO SCH (22:20)
[2020-04-17] MEDS: ENOXAPARIN 40 MG/0.4 ML SYRINGE. SQ SCH (22:21)
[2020-04-17 23:01] VITALS: BP 154/96
[2020-04-18 03:06] VITALS: BP 175/95
[2020-04-18] MEDS ORDERED: hydrALAZINE 20 MG/ML VIAL. IVP PRN (03:30)
[2020-04-18 07:00] VITALS: BP 156/87
--- NOTE | 2020-04-18 07:54 | PDOC ---
[facility] PROGRESS NOTE Date of Service DOS: DATE: 04/18/20 TIME: 07:53 Chief Complaint Chief Complaint A/P: Acute encephalopathy - likely post-ictal from seizure, will place on seizure precautions. Improving, still confused Elevated CK -likely mild rhabdo from being found down. Will repeat level in the morning. Leukocytosis -likely from fall and possible seizure. Improved. Chest x-ray ruled out any pulmonary pathology. No other signs of infection. Afebrile. Depression DM2 -we will place on sliding scale while inpatient. HLD -will hold statin for n.p.o. is confused. HTN -we will give IV as needed hydralazine. Generalized epilepsy Seizure disorder -on Dilantin. low level. Consult neurology. Concussion Plan Continue both phenytoin and levetiracetam. MRI brain Not ready for discharge PT/OT FEN - ADAT PPX - SCDs FULL CODE Dispo - Inpatient History of Present Illness History of Present Illness Mr Cochran is a 59yo M w/ PMHx depression, seizure disorder, DM2, HLD, HTN who comes to ED via EMS from home. He was found facedown in a pool of blood by EMS after police were contacted for a wellness check by his employer after he did not show up to work. GCS 9. Last seen 04/13/[address] head, neck and face negative. Lactate 2.8, CK 673, INR 1, WBC 19.2, Hb 15.7, platelets 232, NA 142, K3.9, BUN 13, CR 1, glucose 210. Troponin negative, urine drug screen negative, alcohol negative. Urine positive for glucosuria, ketones, blood. Initially only opened his eyes to sternal rub and moans. 04/16: Afebrile. Seen bedside today he is conversational. Does have paucity of speech. Does not voice any complaints of pain. Does not recall the events that brought him here. WBC improved 04/17: Much more alert today. Speaking full sentences. Having a little bit of a problem with object recognition and complains of diplopia, headache, a little bit of confused thoughts. He is definitely confused about his epilepsy meds as he told neurology that he is not on Dilantin and that he is on levetiracetam, but he also admits he has been a little confused about that. He does recall that he has a masters in [place] and works in [email or web address], though he is confused and frustrated about not remembering the name of the company he works for or his bosses name but he does remember that his boss was the one who called the police to find him. MRI reveals no acute CVA but does note left retinal detachment. 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 He had residual light dark sensation but now has no vision out of his left eye and is amenable to seeing shutdown planner today. He also noted some blood in his urine and bleeding with his gums x1. He is waiting for his friend to bring his home CPAP device in but is also asking to go home today. Vitals/I&O Vitals/I&O: Vital Signs Date Time Temp Pulse Resp B/P (MAP) Pulse Ox O2 Delivery O2 Flow Rate FiO2 04/18/20 03:53 68 175/95 04/18/20 03:06 98.5 20 95 Room Air 98.5 I & O 04/17/20 04/17/20 04/18/20 15:00 23:00 07:00 Output Total 2450 ml 2600 ml Balance -2450 ml -2600 ml Physical Exam General: Alert, Cooperative, No acute distress Abdomen: Normal bowel sounds, Soft, No tenderness, No hepatosplenomegaly, No masses Extremities: No clubbing, No cyanosis, No edema, Normal pulses, No tenderness/swelling Skin: No rashes, No breakdown, No significant lesion Labs Labs: Laboratory Tests Test 04/17/20 08:53 04/17/20 11:34 04/17/20 16:26 04/17/20 20:33 Sodium Level 138 mmol/L (136-145) Potassium Level 3.5 mmol/L (3.5-5.1) Chloride Level 102 mmol/L (98-107) Carbon Dioxide Level 24 mmol/L (21-32) Anion Gap 12 (6-14) Blood Urea Nitrogen 10 mg/dL (8-26) Creatinine 0.7 mg/dL (0.7-1.3) Estimated GFR (Cockcroft-Gault) 115.8 Glucose Level 168 mg/dL (70-99) Calcium Level 9.0 mg/dL (8.5-10.1) Magnesium Level 2.3 mg/dL (1.8-2.4) Glucose (Fingerstick) 205 mg/dL (70-99) 183 mg/dL (70-99) 212 mg/dL (70-99) Assessment and Plan Assessmemt and Plan Problems Medical Problems: (1) Altered mental status Status: Acute (2) Seizure Status: Acute Comment Review of Relevant I have reviewed the following items vonnie (where applicable) has been applied. Medications: Current Medications Medications (Trade) Dose Ordered Sig/Danni Route PRN Reason Start Time Stop Time Status Last Admin Dose Admin Hydralazine HCl (Apresoline Inj) 10 mg PRN Q4HRS PRN IVP ELEVATED BP, SEE COMMENTS 04/18/20 03:30 04/18/20 03:53 Justicifation of Admission Dx: Justifications for Admission: Justification of Admission Dx: Yes JACQUELINE STONE MD Apr 18, 2020 07:54
[2020-04-18] MEDS: levETIRAcetam 250 MG TABLET PO SCH (08:28)
[2020-04-18] MEDS: INSULIN LISPRO 300 UNITS/3 ML VIAL. SQ SCH ×2 (08:33→12:36)
[2020-04-18 11:00] VITALS: BP 156/87
--- NOTE | 2020-04-18 13:49 | PDOC ---
PROGRESS NOTES Assessment Problems Medical Problems: (1) Altered mental status Status: Acute (2) Seizure Status: Acute Generalized epilepsy Breakthrough seizure, he is supposed to be on a phenytoin taper and levetiracetam according to our office notes. He says that he is just on phenytoin and does not remember taking levetiracetam. Prolonged postictal state, probably had a concussion as well. Leukocytosis, mild rhabdomyolysis Left retinal detachment, saw ophthalmology yesterday, this is chronic Plan Continue both phenytoin and levetiracetam. Hold on repeat EEG as he is better I advised the patient, no driving until 6 months without a seizure Okay for discharge Follow up with Ms. Félix NP, as scheduled, 06/07/20, 9 am Subjective Is clear that he was only on the levetiracetam Objective Vital Signs Date Time Temp Pulse Resp B/P (MAP) Pulse Ox O2 Delivery O2 Flow Rate FiO2 04/18/20 11:00 100.0 79 18 156/87 (110) 97 Room Air 100.0 Intake and Output 04/18/20 07:00 Output Total 5050 ml Balance -5050 ml Output Urine Total 5050 ml PHYSICAL EXAM Alert. Oriented to time, place and person. Speech fluent PERRL. EOMI. CN: no focal findings. Muscle tone: normal. Muscle strength: 5/5 DTR: 2+ Plantar reflex: flexor Gait: Normal. Sensory exam: no abnormal findings. No cerebellar signs elicited. Review of Relevant I have reviewed the following items vonnie (where applicable) has been applied. Labs Laboratory Tests Test 04/16/20 16:58 04/16/20 20:39 04/17/20 07:28 04/17/20 08:53 Glucose (Fingerstick) 194 mg/dL (70-99) 195 mg/dL (70-99) 149 mg/dL (70-99) Sodium Level 138 mmol/L (136-145) Potassium Level 3.5 mmol/L (3.5-5.1) Chloride Level 102 mmol/L (98-107) Carbon Dioxide Level 24 mmol/L (21-32) Anion Gap 12 (6-14) Blood Urea Nitrogen 10 mg/dL (8-26) Creatinine 0.7 mg/dL (0.7-1.3) Estimated GFR (Cockcroft-Gault) 115.8 Glucose Level 168 mg/dL (70-99) Calcium Level 9.0 mg/dL (8.5-10.1) Magnesium Level 2.3 mg/dL (1.8-2.4) Test 04/17/20 11:34 04/17/20 16:26 04/17/20 20:33 04/18/20 08:16 Glucose (Fingerstick) 205 mg/dL (70-99) 183 mg/dL (70-99) 212 mg/dL (70-99) 199 mg/dL (70-99) Test 04/18/20 12:19 Glucose (Fingerstick) 177 mg/dL (70-99) Laboratory Tests Test 04/17/20 16:26 04/17/20 20:33 04/18/20 08:16 04/18/20 12:19 Glucose (Fingerstick) 183 mg/dL (70-99) 212 mg/dL (70-99) 199 mg/dL (70-99) 177 mg/dL (70-99) Microbiology 04/15/20 Blood Culture - Preliminary, Resulted NO GROWTH AFTER 2 DAYS Medications Current Medications Sodium Chloride 1,000 ml @ 1,000 mls/hr 1X ONCE IV Last administered on 04/15/20at 14:23; Start 04/15/20 at 13:30; Stop 04/15/20 at 14:29; Status DC Sodium Chloride 1,000 ml @ 0 mls/hr 1X ONCE IV Last administered on 04/15/20at 15:25; Start 04/15/20 at 15:15; Stop 04/15/20 at 15:17; Status DC Ondansetron HCl (Zofran) 4 mg PRN Q8HRS PRN IV NAUSEA/VOMITING; Start 04/15/20 at 15:30; Stop 04/15/20 at 16:45; Status DC Sodium Chloride 1,000 ml @ 150 mls/hr Q6H40M IV Last administered on 04/16/20at 04:44; Start 04/15/20 at 15:24; Stop 04/16/20 at 07:55; Status DC Ondansetron HCl (Zofran) 4 mg PRN Q4HRS PRN IV NAUSEA/VOMITING; Start 04/15/20 at 16:45 Insulin Human Lispro (HumaLOG) 0-7 UNITS TIDACHC SQ Last administered on 04/18/20at 12:36; Start 04/15/20 at 21:00 Dextrose (Dextrose 50%-Water Syringe) 12.5 gm PRN Q15MIN PRN IV SEE COMMENTS; Start 04/15/20 at 16:45 Lorazepam (Ativan Inj) 2 mg PRN Q4HRS PRN IVP SEIZURE ONLY; Start 04/15/20 at 16:45 Fosphenytoin Sodium (Cerebyx) 100 mg Q8HRS IV Last administered on 04/16/20at 06:17; Start 04/15/20 at 20:00; Stop 04/16/20 at 11:42; Status DC Enoxaparin Sodium (Lovenox 40mg Syringe) 40 mg Q24H SQ Last administered on 04/17/20at 22:21; Start 04/15/20 at 22:00 Potassium Chloride/Dextrose/ Sod Cl 1,000 ml @ 100 mls/hr Q10H ONCE IV Last administered on 04/16/20at 09:39; Start 04/16/20 at 08:00; Stop 04/16/20 at 17:59; Status DC Phenytoin Sodium (Dilantin) 300 mg HS PO Last administered on 04/17/20at 22:20; Start 04/16/20 at 21:00 Levetiracetam (Keppra) 750 mg BID PO Last administered on 04/18/20at 08:28; Start 04/16/20 at 12:30 Hydralazine HCl (Apresoline Inj) 10 mg PRN Q4HRS PRN IVP ELEVATED BP, SEE COMMENTS Last administered on 04/18/20at 03:53; Start 04/18/20 at 03:30 Active Scripts Active Reported Dilantin (Phenytoin Sodium Extended) 100 Mg Capsule 300 Mg PO QHS Metformin Hcl 1,000 Mg Tablet 1,000 Mg PO BIDWMEALS Citalopram Hbr (Citalopram Hydrobromide) 40 Mg Tablet 1 Tab PO DAILY Lisinopril-Hctz 10-12.5 Mg Tab (Lisinopril/Hydrochlorothiazide) 1 Each Tablet 1 Tab PO DAILY Melatonin 3 Mg Tablet 1 Tab PO QHS Vitals/I & O Vital Sign - Last 24 Hours 04/17/20 04/17/20 04/17/20 04/17/20 15:00 19:00 19:30 23:01 Temp 98.5 98.3 98.4 98.5 98.3 98.4 Pulse 80 78 83 Resp 18 20 19 B/P (MAP) 152/88 (109) 185/107 (133) 154/96 (115) Pulse Ox 97 94 97 O2 Delivery Room Air Room Air Room Air Room Air 04/18/20 04/18/20 04/18/20 04/18/20 03:06 03:53 07:00 08:00 Temp 98.5 99.3 98.5 99.3 Pulse 68 68 88 Resp 20 18 B/P (MAP) 175/95 (121) 175/95 156/87 (110) Pulse Ox 95 95 O2 Delivery Room Air Room Air Room Air 04/18/20 11:00 Temp 100.0 100.0 Pulse 79 Resp 18 B/P (MAP) 156/87 (110) Pulse Ox 97 O2 Delivery Room Air Intake and Output 04/17/20 04/17/20 04/18/20 15:00 23:00 07:00 Output Total 2450 ml 2600 ml Balance -2450 ml -2600 ml Images Brain MRI without contrast. HISTORY: Seizures. Trauma. Diplopia. TECHNIQUE: Multiplanar, multisequence magnetic resonance imaging of the brain was performed without contrast. COMPARISON: CT dated 04/15/2020. FINDINGS: There is no residual diffusion to suggest acute or subacute infarction. There is no susceptibility effect to suggest hemorrhage. There is no mass effect or midline shift. There is no hydrocephalus. There are few foci of signal change within the cerebral white matter, a nonspecific finding. There is abnormal signal within the left lobe due to retinal detachment and possible superimposed posterior vitreous hemorrhage. There is evidence of left lens surgery. The mastoid air cells are clear. There are normal flow voids within the cerebral vessels. There is no suspicious calvarial lesion. The hippocampi demonstrate symmetric size and signal. There is no heterotopia or malformation of cortical development. IMPRESSION: 1. No acute intracranial finding. 2. Few tiny foci of signal change within the cerebral white matter. This is most commonly due to chronic small vessel disease in patients of this age. 3. Left retinal detachment and possible superimposed vitreous hemorrhage. Justicifation of Admission Dx: Justifications for Admission: Justification of Admission Dx: Yes MARTHA NICHOLSON MD Apr 18, 2020 13:49
[2020-04-18] MEDS ORDERED: LEVE250T30 PO (13:59)
[2020-04-18] MEDS ORDERED: PHEN100C PO (13:59)
--- NOTE | 2020-04-18 14:03 | PDOC3 ---
Discharge Summary Visit Information Date of Admission: Apr 15, 2020 Date of Discharge: Apr 18, 2020 Admitting Diagnosis: Acute encephalopathy Final Diagnosis Problems Medical Problems: (1) Altered mental status Status: Acute (2) Seizure Status: Acute Brief Hospital Course Allergies Allergies Coded Allergies Type Severity Reaction Last Updated Verified No Known Drug Allergies 04/15/20 No Vital Signs Vital Signs Date Time Temp Pulse Resp B/P (MAP) Pulse Ox O2 Delivery O2 Flow Rate FiO2 04/18/20 11:00 100.0 79 18 156/87 (110) 97 Room Air 100.0 Lab Results Laboratory Tests Test 04/16/20 16:58 04/16/20 20:39 04/17/20 07:28 04/17/20 08:53 Glucose (Fingerstick) 194 mg/dL (70-99) 195 mg/dL (70-99) 149 mg/dL (70-99) Sodium Level 138 mmol/L (136-145) Potassium Level 3.5 mmol/L (3.5-5.1) Chloride Level 102 mmol/L (98-107) Carbon Dioxide Level 24 mmol/L (21-32) Anion Gap 12 (6-14) Blood Urea Nitrogen 10 mg/dL (8-26) Creatinine 0.7 mg/dL (0.7-1.3) Estimated GFR (Cockcroft-Gault) 115.8 Glucose Level 168 mg/dL (70-99) Calcium Level 9.0 mg/dL (8.5-10.1) Magnesium Level 2.3 mg/dL (1.8-2.4) Test 04/17/20 11:34 04/17/20 16:26 04/17/20 20:33 04/18/20 08:16 Glucose (Fingerstick) 205 mg/dL (70-99) 183 mg/dL (70-99) 212 mg/dL (70-99) 199 mg/dL (70-99) Test 04/18/20 12:19 Glucose (Fingerstick) 177 mg/dL (70-99) Laboratory Tests Test 04/17/20 16:26 04/17/20 20:33 04/18/20 08:16 04/18/20 12:19 Glucose (Fingerstick) 183 mg/dL (70-99) 212 mg/dL (70-99) 199 mg/dL (70-99) 177 mg/dL (70-99) Brief Hospital Course Mr Sammie is a 59yo M w/ PMHx depression, seizure disorder, DM2, HLD, HTN who comes to ED via EMS from home. He was found facedown in a pool of blood by EMS after police were contacted for a wellness check by his employer after he did not show up to work. GCS 9. Last seen 04/13/[address] head, neck and face negative. Lactate 2.8, CK 673, INR 1, WBC 19.2, Hb 15.7, platelets 232, NA 142, K3.9, BUN 13, CR 1, glucose 210. Troponin negative, urine drug screen negative, alcohol negative. Urine positive for glucosuria, ketones, blood. Initially only opened his eyes to sternal rub and moans. 04/16: Afebrile. Seen bedside today he is conversational. Does have paucity of speech. Does not voice any complaints of pain. Does not recall the events that brought him here. WBC improved 04/17: Much more alert today. Speaking full sentences. Having a little bit of a problem with object recognition and complains of diplopia, headache, a little bit of confused thoughts. He is definitely confused about his epilepsy meds as he told neurology that he is not on Dilantin and that he is on levetiracetam, but he also admits he has been a little confused about that. He does recall that he has a masters in Japanese and works in [employer], though he is confused and frustrated about not remembering the name of the company he works for or his bosses name but he does remember that his boss was the one who called the police to find him. MRI reveals no acute CVA but does note left retinal detachment. 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 He had residual light dark sensation but now has no vision out of his left eye and is amenable to seeing security assurance analyst today. He also noted some blood in his urine and bleeding with his gums x1. He is waiting for his friend to bring his home CPAP device in but is also asking to go home today. Problem List: Acute encephalopathy - likely post-ictal from seizure, will place on seizure precautions. Improving, still confused Elevated CK -likely mild rhabdo from being found down. Will repeat level in the morning. Leukocytosis -likely from fall and possible seizure. Improved. Chest x-ray ruled out any pulmonary pathology. No other signs of infection. Afebrile. Depression DM2 -we will place on sliding scale while inpatient. HLD -will hold statin for n.p.o. is confused. HTN -we will give IV as needed hydralazine. Generalized epilepsy Seizure disorder -on Dilantin. low level. Consult neurology. Concussion Left retinal detachment - after globe piercing 9 years ago, now complete Greater than 30 minutes Discharge Information Condition at Discharge: Improved Follow Up: Weeks Disposition/Orders: D/C to Home Scheduled Citalopram Hydrobromide (Citalopram Hbr) 40 Mg Tablet, 1 TAB PO DAILY, #90 Ref 1 (Reported) Entered as Reported by: SHEREE HARRIS on 04/15/201429 Last Action: New Order on 04/15/201429 by SHEREE HARRIS Levetiracetam (Keppra) 250 Mg Tablet, 750 MG PO BID for Seizure for 30 Days, #180 Ref 3 Prescribed by: JACQUELINE STONE MD on 04/18/20 1359 Lisinopril/Hydrochlorothiazide (Lisinopril-Hctz 10-12.5 Mg Tab) 1 Each Tablet, 1 TAB PO DAILY, #30 Ref 5 (Reported) Entered as Reported by: SHEREE HARRIS on 04/15/201429 Last Action: New Order on 04/15/201429 by SHEREE HARRIS Melatonin (Melatonin) 3 Mg Tablet, 1 TAB PO QHS, #30 Ref 2 (Reported) Entered as Reported by: SHEREE HARRIS on 04/15/201429 Last Action: New Order on 04/15/201429 by SHEREE HARRIS Phenytoin Sodium Extended (Dilantin) 100 Mg Capsule, 300 MG PO HS for Seizure for 30 Days, #90 Ref 3 Prescribed by: JACQUELINE STONE MD on 04/18/20 1359 Discontinued Medications Metformin Hcl (Metformin Hcl) 1,000 Mg Tablet, 1,000 MG PO BIDWMEALS, (Reported) Entered as Reported by: SHEREE HARRIS on 04/15/201429 Last Action: New Order on 04/15/201429 by SHEREE HARRIS Phenytoin Sodium Extended (Dilantin) 100 Mg Capsule, 300 MG PO QHS, (Reported) Entered as Reported by: SHEREE HARRIS on 04/15/201429 Last Action: New Order on 04/15/201429 by SHEREE HARRIS Justicifation of Admission Dx: Justifications for Admission: Justification of Admission Dx: Yes JACQUELINE STONE MD Apr 18, 2020 14:03
[2020-04-18] MEDS ORDERED: LEVE750T23 PO (14:45)
--- NOTE | 2020-04-18 16:04 | NUR ---
SW following. Reviewed chart and discussed with RN. Pt from home. Pt to discharge self-care per Dr. Schofield. No further SW needs at this time.
--- NOTE | 2020-04-18 16:36 | NUR ---
Discharge Note: TROY BRIGHT Discharge instructions and discharge home medications reviewed with Patient and a copy given. All questions have been answered and understanding verbalized. The following instructions and handouts were given: discharge instructions, new prescription, education and follow up recommendations. Discontinued lines and drains: Peripheral IV discontinued intact. Patient discharged to Home or Self Care with Friend via ambulated off unit by FACTORY ASSEMBLER.
== END 2020-04-18 16:38 | disposition home or self-care (01) | DRG 89 ==
LOC: ER 13:17 → ED HOLD 14:16 → 5 NORTH 18:40
PROVIDERS: ADMIT Internal Medicine; ATTEND Internal Medicine
DX: S06.0X9A Concussion with loss of consciousness of unspecified duration, initial encounter (principal); M62.82 Rhabdomyolysis; H33.22 Serous retinal detachment, left eye; G40.409 Other generalized epilepsy and epileptic syndromes, not intractable, without status epilepticus; E11.51 Type 2 diabetes mellitus with diabetic peripheral angiopathy without gangrene; E78.00 Pure hypercholesterolemia, unspecified; E78.5 Hyperlipidemia, unspecified; F32.9 Major depressive disorder, single episode, unspecified; H53.2 Diplopia; H54.62 Unqualified visual loss, left eye, normal vision right eye; I10 Essential (primary) hypertension; Z82.49 Family history of ischemic heart disease and other diseases of the circulatory system; G89.29 Other chronic pain; W18.39XA Other fall on same level, initial encounter; Y93.89 Activity, other specified; Y92.89 Other specified places as the place of occurrence of the external cause; Y99.8 Other external cause status
CPT/HCPCS: 36415; 51702; 70450; 70486; 70551; 71045; 72125; 80048; 80053; 80185; 80307; 81001; 82140; 82550; 82962; 83605; 83735; 84484; 85007; 85025; 85610; 87040; 93005; 96360; 96361; 99285; G0480; J0360; J1650; J1815; J3480; J7030; Q2009; 97116-GP; 97530-GO; 97530-GP; 97535-GO; G0378

== ENCOUNTER 2022-01-16 10:49 | Emergency (ER) | payer OTHER ==
[~2022-01-16] VITALS: Ht 180.3 cm; Wt 98.7 kg
[~2022-01-16 10:49] MED LIST: CITA40TA6 PO; LEVE250T30 PO; LEVE750T23 PO; LISI1TAB35 PO; MELA3TAB4 PO; METF10007 PO; PHEN100C PO
[2022-01-16 11:37] VITALS: BP 146/94
[2022-01-16] MEDS ORDERED: GELATIN SPONGE SIZE 12-7MM SPONGE. TP ONE (12:45)
[2022-01-16] MEDS ORDERED: DIPHTH,PERTUSS(ACELL),TET TOX 0.5 ML DISP.SYRIN. VAX IM ONE (12:45)
[2022-01-16] MEDS ORDERED: CEPH500C PO (13:05)
--- NOTE | 2022-01-16 13:06 | PHYS DOC ---
Past Medical History Past Medical History: Depression, Diabetes-Type II, High Cholesterol, Hyp ertension, Seizure Additional Past Medical Histor: EPILEPSY,CHRONIC NECK AND BACK PAIN Past Surgical History: Other Additional Past Surgical Histo: EYE SURGERY Smoking Status: Unknown if ever smoked Alcohol Use: None General Adult EDM: Chief Complaint: LACERATION/AVULSION HPI: HPI: Patient is a 61 year old male who presents with laceration to the right index finger pad. Yesterday morning, patient was processing a liver, when he cut his finger. Patient states that he had a hard time controlling the bleeding. Eventually, last night, he was able to get a Band-Aid on this morning. However, when he took a shower this morning, it began bleeding again. Patient is unsure the last time he had a tetanus vaccination, but is sure it was greater than 5 years ago. Patient has no allergies to medications. He has no other complaints at this time Review of Systems: Review of Systems: ROS negative or noncontributory except as mentioned in HPI. Heart Score: C/O Chest Pain: No Allergies: Allergies: Allergies Coded Allergies Type Severity Reaction Last Updated Verified No Known Drug Allergies 04/15/20 No Physical Exam: PE: Constitutional: Well developed, well nourished, no acute distress, non-toxic appearance. HENT: Normocephalic, atraumatic, bilateral external ears normal, nose normal. Eyes: EOMI, conjunctiva normal, no discharge. Neck: Normal range of motion, no stridor. Skin: Approximately 8 mm superficial laceration noted to the finger pad of right side digit 2, on exam hemostasis is achieved. Skin otherwise warm, dry, no erythema, no rash. Extremities: Right digit 2 finger pad exquisitely tender surrounding laceration. Extremities otherwise no tenderness, no cyanosis, no clubbing, ROM intact, no edema. Neurologic: Alert and oriented x4, normal motor function, normal sensory function, no focal deficits noted. Current Patient Data: Vital Signs: Vital Signs Date Time Temp Pulse Resp B/P (MAP) Pulse Ox O2 Delivery O2 Flow Rate FiO2 01/16/22 11:37 98.6 67 18 146/94 (111) 96 Room Air 98.6 Course & Med Decision Making: Course & Med Decision Making Pertinent Labs and Imaging studies reviewed. (See chart for details) Patient is a 7-year-old male who presents with a finger laceration. Over the past 26 hours, patient states that he was unable to achieve hemostasis. On exam today, bleeding is controlled. However, as the wound has rebled a few times, Gelfoam will be applied. Patient was counseled on leaving the dressing intact for period of at least 72 hours to allow the wound to begin to heal. Tetanus vaccination was updated in the department today. Patient was provided with electronic prescription for antibiotics. Return precautions are provided. Patient understands and is agreeable to discharge plan. Dragon Disclaimer: Dragon Disclaimer: This electronic medical record was generated, in whole or in part, using a voice recognition dictation system. Departure Departure Impression: Primary Impression: Laceration of index finger without foreign body with damage to nail Qualified Codes: S61.310A - Laceration without foreign body of right index finger with damage to nail, initial encounter Additional Impression: Elevated blood pressure reading Disposition: HOME / SELF CARE / HOMELESS Condition: IMPROVED Referrals: ROMMEL MORALEZ MD (PCP) Patient Instructions: Wound Care, [id number] Additional Instructions: EMERGENCY DEPARTMENT GENERAL DISCHARGE INSTRUCTIONS Thank you for coming to [facility] Emergency Department (ED) today and trusting us with you care. We trust that you had a positive experience in our Emergency Department. If you wish to speak to the department management, you may call the director at . YOUR FOLLOW UP INSTRUCTIONS ARE FOLLOWS: 1. Follow up with your primary care doctor. If you do not have a primary doctor, please ask for a resource list of physicians or clinics that may be able to assist you with follow up care. 2. The emergency provider has interpreted your imaging studies, if any were ordered. The radiology phlebotomy specialist also reviewed them. If there is a change in the findings, you will be notified in 48 hours when at all possible. 3. If a lab test or culture has been done, your results will be reviewed and you will be notified if you need a change in treatment. 4. Follow instructions verbalized to you and refer to the printouts if needed. ADDITIONAL INSTRUCTIONS AND INFORMATION: 1. Your care today has been supervised by a physician who is specially trained in emergency care. Many problems require more than one evaluation for a complete diagnosis and treatment. We recommend that you schedule your follow up appointment as recommended to ensure complete treatment of you illness or injury. If you are unable to obtain follow up care and continue to have a problem, or if your condition worsens, we recommend that you return to the ED. 2. We are not able to safely determine your condition over the phone nor are we able to give sound medical advice over the phone. For these safety reasons, if you call for medical advice we will ask you to come to the ED for further evaluation. 3. If you have any questions regarding these discharge instructions please call the ED at . SAFETY INFORMATION: In the interest of safety, wellness, and injury prevention; we encourage you to wear your seat belt, if you smoke; quite smoking, and we encourage family to use a protective helmet for bicycling and other sporting events that present an increased risk for head injury. IF YOUR SYMPTOMS WORSEN OR NEW SYMPTOMS DEVELOP, OR YOU HAVE CONCERNS ABOUT YOUR CONDITION; OR IF YOUR CONDITION WORSENS WHILE YOU ARE WAITING FOR YOUR FOLLOW UP APPOINTMENT; EITHER CONTACT YOUR PRIMARY CARE DOCTOR, THE PHYSICIAN WHOSE NAME AND NUMBER YOU WERE GIVEN, OR RETURN TO THE ED IMMEDIATELY. Scripts Tramadol Hcl (TRAMADOL HCL) 50 Mg Tablet 50 MG PO DAILY PRN for PAIN, #6 TAB 0 Refills Prov: ALYSHA WARD 01/16/22 Cephalexin (KEFLEX) 500 Mg Capsule 1 CAP PO BID, #20 CAP 0 Refills Prov: ALYSHA WARD 01/16/22 ALYSHA WARD January 16, 2022 13:06
[2022-01-16] MEDS ORDERED: TRAM50TA PO (13:31)
== END 2022-01-16 13:15 | disposition home or self-care (01) ==
LOC: ER 10:49
DX: S61.310A Laceration without foreign body of right index finger with damage to nail, initial encounter (principal); I10 Essential (primary) hypertension; E11.9 Type 2 diabetes mellitus without complications; E78.00 Pure hypercholesterolemia, unspecified; F32.9 Major depressive disorder, single episode, unspecified; G40.909 Epilepsy, unspecified, not intractable, without status epilepticus; G89.29 Other chronic pain; W26.8XXA Contact with other sharp object(s), not elsewhere classified, initial encounter; Y93.89 Activity, other specified; Y92.89 Other specified places as the place of occurrence of the external cause; Y99.8 Other external cause status
CPT/HCPCS: 90471; 90715; 99283